=== PATIENT | male | born 1960 | race Caucasian/White ===

== ENCOUNTER 2021-10-17 10:17 | Inpatient (IN) | payer OTHER, SELFPAY ==
[2021-10-17] VITALS (14 sets, daily range): BP systolic 122–154; BP diastolic 67–106; PULSE 70–79; RESP 18–30; TEMP 36.7–39.8; O2SAT 85–96; BMI 29.0
--- NOTE | 2021-10-17 11:05 | EKG12_ITS ---
Test Reason : SOB Blood Pressure : / mmHG Vent. Rate : 067 BPM Atrial Rate : 067 BPM P-R Int : 136 ms QRS Dur : 116 ms QT Int : 394 ms P-R-T Axes : 001 -10 041 degrees QTc Int : 416 ms Normal sinus rhythm Low voltage QRS (limb leads) Incomplete Right Bundle Branch Block Confirmed by TERRANCE SYED, BRYAN ([id number]), acquisition editor AMELIE WORTHINGTON ([id number]) on 10/18/2021 1:58:07 PM Referred By: TIM/MARKELL Confirmed By:BRYAN CARLOS MD
--- NOTE | 2021-10-17 11:07 | EDS_ITS ---
HPI History of Present Illness Chief Complaint: Shortness of Breath Informant: patient Onset/Context/Timing Onset: Days Context: Gradual Onset Current Severity: Moderate Maximum Severity: Moderate Narrative Narrative: Patient presents via EMS secondary to increased shortness of breath with COVID. Patient reported has had symptoms for the past 10 days. He tested positive at [facility] 4 days ago. PFSH PFSH Medical History no medical history no medical history Allergy/AdvReac Type Severity Reaction Status Date / Time No Known Allergies Allergy Verified 10/17/21 13:15 Family History no significant family his Surgical History no surgical history Social History Smoking Status: Never smoker ROS ROS ED Constitutional Constitutional ED: Reports chills Eyes Eyes: Denies blurry vision or change in vision ENT ENT ED: Reports rhinorrhea Cardiovascular Cardiovascular: Denies chest pain or palpitations Respiratory/Chest Respiratory/Chest: Reports cough and dyspnea Gastrointestinal Gastrointestinal: Denies diarrhea, nausea or vomiting Genitourinary Genitourinary ED: Denies dysuria Musculoskeletal Musculoskeletal: Reports myalgias Integumentary Denies rash Neurologic Neurologic: Reports weakness Allergic/Immunologic Allergic/Immunologic ED: Denies urticaria EXAM Physical Exam Const Vital Signs: 10/17/21 10:19 10/17/21 10:42 10/17/21 13:16 Temperature 99.5 F H Temperature Source Oral Pulse Rate 70 71 Respiratory Rate 20 H Respiratory Effort Short of Breath Respiratory Pattern Tachypnea Blood Pressure 130/76 H 122/106 H Blood Pressure Mean 94 111 Pulse Ox 92 91 Oxygen Delivery Method Nasal Cannula Nasal Cannula Nasal Cannula Oxygen Flow Rate (L/min) 2 2 2 Positive well nourished and well developed General Appearance ED: well developed HEENT Reports moist mucous membranes Eyes PERRL and EOMs intact bilaterally Neck supple Chest Wall inspection of chest normal and palpation of chest normal Resp Resp Narrative: Mild crackles bilateral bases Cardio regular rate and regular rhythm GI non-tender Auscultation: hypoactive bowel sounds Palpation: soft Extremity normal to inspection Neuro oriented x3 Sensorium / Orientation: alert Skin no rashes or lesions noted MDM MDM MDM Narrative Medical decision making narrative: EKG, lab work, CTA of the chest obtained. Lab Data Attestation: I reviewed the patient's lab results. Labs: Laboratory Results - last 24 hr 0110/17/21 10/17/21 11:15 11:15 11:15 WBC 4.7 RBC 4.73 Hgb 14.3 Hct 41.6 MCV 87.9 MCH 30.2 MCHC 34.4 RDW Std Deviation 39.3 RDW Coeff of Kayce 12.1 Plt Count 159 MPV 10.8 Immature Gran % (Auto) 0.400 Neut % (Auto) 92.1 H Lymph % (Auto) 4.5 L [place] % (Auto) 3.0 Eos % (Auto) 0.0 Baso % (Auto) 0.0 Absolute Neuts (auto) 4.3 Absolute Lymphs (auto) 0.21 L Nucleated RBC % 0 Sodium 134 L Potassium 3.9 Chloride 102 Carbon Dioxide 25.0 Anion Gap 7 BUN 18 Creatinine 0.87 Estim Creat Clear Calc 11.71 Est GFR (MDRD) Af Amer 114 Est GFR (MDRD) Non-Af 94 BUN/Creatinine Ratio 20.7 H Glucose 132 H Lactic Acid 1.0 Calcium 8.4 L Total Bilirubin 0.60 AST 77 H ALT 67 H Alkaline Phosphatase 75 Total Protein 6.8 Albumin 2.6 L Globulin 4.2 Albumin/Globulin Ratio 0.6 L Radiography Diagnostic Testing: Clinical Impression(s) from Imaging Studies Chest CTA 10/17/21 12:10 IMPRESSION: Diffuse bilateral pulmonary infiltrates. Electronically Signed: Ang Fajardo MD at 12:45 EST , Service support , EKG Initial EKG: Attestation: I personally reviewed and interpreted this EKG as follows: Interpretation: Sinus Rhythm (Sinus at 67 with no acute ischemia.) Treatment and Re-Evaluation Comments:: On repeat evaluation patient resting comfortable on 3 L nasal cannula. His O2 sat is 92%. I turned his oxygen off and he dropped to 85% on room air. We did ambulate him on 2 L with O2 sats only in the upper 80s. After getting back to the bed he started coughing more and O2 sats stayed at 87% on 2 L. I did bump up to 3 L to get him over 90%. I do have concerns with patient going home. I will speak with hospitalist regarding admission. He will be given a dose of Decadron at this time. Discharge Plan Triage Chief Complaint: Shortness of Breath ED Provider: Juanita Sanchez Dx/Rx/DC Orders Clinical Impression: COVID-19, Hypoxia Primary Care Provider: Care Physician,No Primary Referrals: Care Physician,No Primary [Primary Care Provider] - Disposition Disposition: Acute Care [facility]
[2021-10-17 11:28] LABS: Absolute Lymphocyte Count 0.21 X10^3/uL (0.83-4.51); Absolute Neutrophil Count 4.3 X10^3/uL (2.0-7.7); Hematocrit 41.6 % (40-54); Hemoglobin 14.3 g/dL (13.0-16.5); Lymphocyte # 0.21 X10^3/ul (0.83-4.51); Lymphocyte % 4.5 % (19-41); Mean Corp Hgb Conc 34.4 g/dL (32-36); Mean Corpuscular Hgb 30.2 pg (27.0-32.0); Mean Corpuscular Volume 87.9 fL (80-94); Mean Platelet Vol. 10.8 fl (6.2-12.0); Monocyte# 0.14 X10^3/uL; NRBC Flagged by Analyzer 0 % (0-5); Neutrophil # 4.31 X10^3/uL (2.7-7.7); Neutrophil % 92.1 % (47-70); POSITIVE DIFFERENTIAL YES; Platelet Count 159 K/mm3 (150-450); RBC Distribution Width CV 12.1 % (11.6-14.6); RBC Distribution Width SD 39.3 fl (35.1-43.9); Red Blood Count 4.73 M/mm3 (4.6-6.2); White Blood Count 4.7 K/mm3 (4.4-11.0)
[2021-10-17 11:31] LABS: Differential Indicated SCAN CRITERIA MET
[2021-10-17 11:47] LABS: ALB/GLOB Ratio 0.6 RATIO (0.9-2.4); AST(SGOT) 77 U/L (15-37); Alanine Aminotransfer ALT/SGPT 67 U/L (16-61); Albumin, Serum 2.6 g/dL (3.2-5.0); Alkaline Phosphatase 75 U/L (45-117); Anion Gap 7 (5-15); BUN 18 mg/dL (7-18); BUN/Creat Ratio 20.7 RATIO (10-20); Calcium,Total 8.4 mg/dL (8.5-10.1); Chloride 102 mmol/L (98-107); Creatinine, Serum 0.87 mg/dL (0.70-1.30); EST Glomerular Filtration Rate 94 mL/min (>60); Est Glom Filt Rate - Afr Amer 114 mL/min (>60); Estimated Creatinine Clearance 11.71 ml/min; Globulin 4.2 g/dL (2.2-4.2); Glucose 132 mg/dL (74-106); Potassium 3.9 mmol/L (3.5-5.1); Protein, Total 6.8 g/dL (6.4-8.2); Sodium Level 134 mmol/L (136-145)
--- NOTE | 2021-10-17 12:10 | CT_ITS ---
STUDY: CTA CHEST REASON FOR EXAM: Male, 61 years old. covid pneumonia RADIATION DOSAGE (If Supplied By Facility): CTDIvol = ( 14.98 ) mGy, DLP = ( 437.18 ) mGycm TECHNIQUE: The examination was performed with the intravenous administration of IV 100mL Isovue-370. Post-processing of the angiographic images was performed, with multiplanar reformation and 3D reconstruction. Individualized dose optimization techniques were used for this CT. COMPARISON: None. FINDINGS: Normal enhancement of the main pulmonary artery and right and left pulmonary arteries. Normal enhancement of the bilateral peripheral pulmonary arteries. There is no demonstrated pulmonary embolism. Normal thoracic aorta and visualized great vessels. There is no demonstrated aortic dissection. Normal heart and pericardium. Normal mediastinum. Normal hilar regions. Normal visualized trachea and bronchi. The lungs are well expanded. Diffuse bilateral pulmonary infiltrates involving both upper and lower lobes. Radiographic follow-up is recommended. Normal pleura. Normal chest wall structures. There are degenerative changes of thoracic spine. Normal visualized upper abdomen. CT/CTA Chest W/WO Contrast IMPRESSION: Diffuse bilateral pulmonary infiltrates. Electronically Signed: Ang Fajardo MD at 12:45 EST , Service support ,
--- NOTE | 2021-10-17 14:35 | PCM.HP.STD ---
HPI - General General Date of Admission: 10/17/21 Date of Service: 10/17/21 Chief Complaint: COVID diagnosis, 10 days out, worsening. HPI Narrative The patient is a 61 y/o [employer] M w/ PMHx: Tobacco use; however, patient has not sought out any regular medical care who presents to the [facility] ED on 10/17/21 with history of onset COVID type symptoms including fever, chills, headache, sore throat, altered taste and smell, body aches, nausea with emesis, cough and dyspnea starting 10 days prior with unvaccinated status progressively worsening with evaluation at [facility] the prior where he tested positive; however, he has been worsening prompting family to bring him in. Work-up in the ED included T99.5, heart rate 70, BP 130/76, respiratory rate 24, 85% on room air with improvement to 91 to 92% on 2 L with failed walking ambulatory trial as patient had been potentially amenable to discharge to home, blood culture x2 pending per ED, CBC with WC 4.7, hemoglobin 14.3, platelet 159 with lymphopenia, CMP with sodium 134, glucose 132, lactic acid 1.0, AST/ALT 77/67, CTPA with no evidence of pulmonary emboli or dissection with bilateral COVID-pneumonia evident, EKG was sinus rhythm with no acute evidence of ischemia. In the ED patient was administered Decadron therapy. In the ED patient family is very adamant about certain treatments that they do want and do not want. They have requested patient not be administered baricitinib or remdesivir therapy. Attempted to discuss these items with them but regardless of discussions family preference is to avoid. [facility] Medical History Tobacco use Medical History no medical history Allergy/AdvReac Type Severity Reaction Status Date / Time No Known Allergies Allergy Verified 10/17/21 13:15 Family History (Updated 10/17/21 @ 17:[address] Milena Carmona MD) Mother Heart disease Father Heart disease Diabetes Family History no significant family his Surgical History (Updated 10/17/21 @ 17:[address] Milena Carmona MD) No history of previous surgery Surgical History no surgical history Social History (Updated 10/17/21 @ 17:[address] Milena Carmona MD) household members: spouse Smoking Status: Current every day smoker tobacco type: cigarettes Years smoked: 50 alcohol intake: never substance use type: does not use ROS ROS Narrative Admission Review of Systems: CONSTITUTIONAL: No weight loss, + fever, chills, weakness or fatigue. HEENT: + Headache, sore throat, altered taste/smell. Eyes: No visual loss, blurred vision, double vision or yellow sclerae. Ears, Nose, Throat: No hearing loss, sneezing. SKIN: No rash or itching, lesions, wounds. CARDIOVASCULAR: No chest pain, chest pressure or chest discomfort, palpitations, edema, orthopnea, syncopal events. RESPIRATORY: + shortness of breath, cough, No marked sputum, wheezing, hemoptysis. GASTROINTESTINAL: + anorexia, nausea with vomiting, No diarrhea, abdominal pain, melena, BRBPR. GENITOURINARY: No dysuria, frequency, urgency or retention. NEUROLOGICAL: + headache, No dizziness, syncope, paralysis, ataxia, numbness or tingling in the extremities, focal weakness, change in bowel or bladder control, seizure. MUSCULOSKELETAL: + muscle, back pain, joint pain or stiffness. HEMATOLOGIC: No anemia, bleeding or bruising. LYMPHATICS: No enlarged nodes. No history of splenectomy. PSYCHIATRIC: No history of depression or anxiety. ENDOCRINOLOGIC: No reports of sweating, cold or heat intolerance. No polyuria or polydipsia. ALLERGIES: No history of asthma, hives, eczema or rhinitis. Vital Signs Vital Signs Vital Signs: 10/17/21 10:19 10/17/21 10:42 10/17/21 13:16 Temperature 99.5 F H Temperature Source Oral Pulse Rate 70 71 Respiratory Rate 20 H Respiratory Effort Short of Breath Respiratory Pattern Tachypnea Blood Pressure 130/76 H 122/106 H Blood Pressure Mean 94 111 Pulse Ox 92 91 Oxygen Delivery Method Nasal Cannula Nasal Cannula Nasal Cannula Oxygen Flow Rate (L/min) 2 2 2 10/17/21 14:31 Temperature 98.9 F Temperature Source Temporal Pulse Rate 70 Respiratory Rate 24 H Respiratory Effort Respiratory Pattern Blood Pressure 142/91 H Blood Pressure Mean 108 Pulse Ox 85 Oxygen Delivery Method Room Air Oxygen Flow Rate (L/min) Weight Weight: 21 lb Body Mass Index (BMI) 2.9 Physical Exam Narrative Physical Examination: General: Awake, alert, oriented x 3 and cooperative, seated upright in the ED bed, fatigued and ill-appearing, increased stridor, accessory muscle usage, mildly lethargic. Skin: Normal color, normal turgor, no icterus, no cyanosis. HEENT: AT/NC, EOMI, PERRLA, moderately dry MM, no carotid bruits or JVD noted. Lungs: Diffusely diminished, greater bases, increased respiratory rate, accessory muscle usage, evidence of distress, no rales, ronchi or wheezing. Heart: Regular rate with regular rhythm; no gallop, rub audible. Abdomen: Soft, mild generalized discomfort with palpation, no obvious distention, mildly hyperactive bowel sounds, no obvious HSM. Extremities: No cyanosis, clubbing, or edema. Neurological: Patient awake, alert, oriented as noted, cognitive function mildly decreased from likely baseline, mildly lethargic pupils equally reactive to light and accommodation, cranial nerves II-XII grossly normal, moving all 4 extremities, no focal deficits, strength severely globally decreased secondary to acute presentation. Psychiatric: Affect appears flat, lethargic, fatigued, ill-appearing, evidence of respiratory distress, no acute evidence of depressive or anxiety feelings. Results Lab / Micro Data Result Diagrams: 10/17/21 11:15 10/17/21 11:15 Labs: Laboratory Results - last 24 hr 10/17/21 11:15: WBC 4.7, RBC 4.73, Hgb 14.3, Hct 41.6, MCV 87.9, MCH 30.2, MCHC 34.4, RDW Std Deviation 39.3, RDW Coeff of Kayce 12.1, Plt Count 159, MPV 10.8, Immature Gran % (Auto) 0.400, Neut % (Auto) 92.1 H, Lymph % (Auto) 4.5 L, [place] % (Auto) 3.0, Eos % (Auto) 0.0, Baso % (Auto) 0.0, Absolute Neuts (auto) 4.3, Absolute Lymphs (auto) 0.21 L, Nucleated RBC % 0 10/17/21 11:15: Sodium 134 L, Potassium 3.9, Chloride 102, Carbon Dioxide 25.0, Anion Gap 7, BUN 18, Creatinine 0.87, Estim Creat Clear Calc 11.71, Est GFR (MDRD) Af Amer 114, Est GFR (MDRD) Non-Af 94, BUN/Creatinine Ratio 20.7 H, Glucose 132 H, Calcium 8.4 L, Total Bilirubin 0.60, AST 77 H, ALT 67 H, Alkaline Phosphatase 75, Total Protein 6.8, Albumin 2.6 L, Globulin 4.2, Albumin/Globulin Ratio 0.6 L 10/17/21 11:15: Lactic Acid 1.0 Radiology Impression Chest CTA 10/17/21 12:10 IMPRESSION: Diffuse bilateral pulmonary infiltrates. Electronically Signed: Ang Fajardo MD at 12:45 EST , Service support , Assessment & Plan Assessment/Plan (1) Acute respiratory failure with hypoxia: (2) Pneumonia due to COVID-19 virus: PLAN: The patient is a 61 y/o [employer] M w/ PMHx: Tobacco use; however, patient has not sought out any regular medical care who presents to the [facility] ED on 10/17/21 with history of onset COVID type symptoms including fever, chills, headache, sore throat, altered taste and smell, body aches, nausea with emesis, cough and dyspnea starting 10 days prior with unvaccinated status progressively worsening with evaluation at [facility] the prior where he tested positive. #1. Acute Hypoxia secondary to Acute Bilateral Pneumonia secondary to Acute Viral Syndrome, COVID-19: Will admit to the MT telemetry, maintain on COVID precautions with need for an additional 10 days of further quarantine given severity of presentation, will maintain on oxygen with wean as tolerated to room air, PRN albuterol, HOB, IS parameters w/ pending sputum cultures and urine antigens, will obtain D-dimer, procalcitonin, CRP, CPK, Ferritin, LDH and BNP, continue supportive care including q 2 hour turning including prone given no prone bed availability and judicious hydration, closely monitor for worsening status for ARDS and multiorgan failure, will initiate and continue IV decadron x 10 doses, given family strong preference will defer any administration of remdesivir or barcitinib. #2. Hyperglycemia, mild: Glucose 132, possibly stress response, to be cautious given no significant medical care history will obtain A1c especially given planned steroid usage. #3. Elevated LFTs: Admission AST/ALT 77/67, likely secondary to acute presentation #1, continue to treat, will continue to trend #4. Tobacco Abuse: Encouraged cessation, inpatient consultation per RT, NR if desired. #5. DVT prophylaxis: SCDs, Lovenox. #6. CODE status: Patient does not have healthcare power of erisa attorney nor living will in place. Given presentation with respiratory failure with COVID-pneumonia in an unvaccinated status, discussed CODE status at length including difference between FULL code, DNR-CCA and DNR-CC status. Following discussions about the differences in these status, requested DNR-CCA, no intubation. Also requested (per family) complete avoidance of remdesivir and barcitinib. Advanced Care Planning Face to Face Time: 16 minutes. Charges/Coding Visit Charges Inpatient E&M: 11020 Init Hosp L3 Procedures Hospitalists Procedures: 54271 Advncd Care Plan 30 Min
--- NOTE | 2021-10-17 14:55 | CASEMGMT ---
QUIN CM to room to meet with patient for initial transition planning/care coordination assessment. QUIN FLORES introduced self and role at [facility]. Patient voices understanding and consents to assessment at this time. Patient's , Maggy Beavers present at bedside. Patient is alert and oriented and answers all questions appropriately. Care providers, pharmacy, and demographics verified/updated at this time. PCP: Denies Specialists: Denies Preferred Pharmacy: [facility]- [address] Insurance: None/Self pay Prescription Benefit: No Living Will/HPOA: Patient denies having living will or HPOA. LNOK: , Maggy Beavers Living Arrangements: Patient lives with , son and sister in one story house with no steps to enter the home. Patient states independent with ADLs prior to hospitalization. 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 Patient denies previous HHC or SNF stays. Patient does not wear home oxygen. Patient and deny preference of DME company if home oxygen were needed at time of discharge. Patient first tested positive for COVID 4 days ago at [facility]. Patient has had COVID-like symptoms x 10 days. Patient has no concerns with going home at time of discharge. CM to follow for any discharge planning/needs. Patient voices no concerns/needs at this time. Advised patient to ask for CM if any questions/concerns/needs arise. Voices understanding. Plan: home
--- NOTE | 2021-10-17 15:30 | ED.RN ---
PT HAS HAD NUMEROUS PHONE CALLS ASKING FOR UPDATES FROM FAMILY MEMBERS. AT BEDSIDE EDUCATED THAT THEY NEED TO DESIGNATED ONE PERSON THEIR CONTACT AND THAT PERSON CAN CALL AND UPDATE OTHERS. FAMILY ASLO UPSET THAT PATIENT CAN NOT HAVE VISITORS AND EXPRESSED WANTING TO GO HOME INSTEAD OF BEING ADMITTED. PT AND FAMILY UPDATED ON THE RISKS, THEY ASK FOR SOME TIME TO THINK ABOUT IT.
--- NOTE | 2021-10-17 16:20 | ED.RN ---
FAMILY COMES OUT SAYING THEY AGREE TO BE ADMITTED NOW. THIS RN GIVES THE PAPER WITH PATIENTS ROOM NUMBER, NURSES STATION NUMBER AND VISITOR RULES.
[2021-10-17] MEDS: dexAMETHasone 10 MG/ML Vial 6 MG IV (16:26)
[2021-10-17 16:31] LABS: BNP,B-Type NATRIURETIC PEPTIDE 21.5 pg/mL (0-100)
[2021-10-17 17:06] LABS: Ferritin 1955 ng/mL (26-388); LDH 489 U/L (87-241)
--- NOTE | 2021-10-17 17:09 | NURSING ---
Pandemic Documentation Initiated Emergency Documentation Start: 10/17/21 16:35 Freq: ONCE Status: Active Protocol: Created 10/17/21 17:09 (Rec: 10/17/21 17:09 [id number])
[2021-10-17] MEDS: Acetaminophen 325 MG Tablet 650 MG PO ×2 (17:33→21:43)
[2021-10-17] MEDS: 0.9% Saline Lock 10 ML Syringe IV ×2 (17:36→21:37)
[2021-10-17] MEDS: 0.9% Normal Saline 1,000 ML 100 ML IV (17:36)
[2021-10-17 18:35] LABS: D-Dimer Quantitative (DVT/PE) 2.28 FEU/ug/m (0.27-0.49)
[2021-10-17 18:53] LABS: Procalcitonin 0.14 ng/mL (0.00-0.09)
[2021-10-17] MEDS: Enoxaparin 30 MG/0.3 ML Syringe SC (21:37)
[2021-10-18] VITALS (22 sets, daily range): BP systolic 118–143; BP diastolic 66–75; PULSE 62–71; RESP 22–36; TEMP 37.1–38.5; O2SAT 92–97
[2021-10-18] MEDS: Acetaminophen 325 MG Tablet 650 MG PO ×3 (04:17→21:36)
[2021-10-18] MEDS: 0.9% Saline Lock 10 ML Syringe IV ×2 (04:24→21:38)
[2021-10-18 06:19] LABS: Absolute Lymphocyte Count 0.47 X10^3/uL (0.83-4.51); Absolute Neutrophil Count 3.5 X10^3/uL (2.0-7.7); Basophil# 0.01 X10^3/uL; Basophil% 0.2 % (0-1); Hematocrit 39.4 % (40-54); Hemoglobin 13.4 g/dL (13.0-16.5); Lymphocyte # 0.47 X10^3/ul (0.83-4.51); Lymphocyte % 11.3 % (19-41); Mean Corpuscular Hgb 29.6 pg (27.0-32.0); Mean Corpuscular Volume 87.2 fL (80-94); Mean Platelet Vol. 10.4 fl (6.2-12.0); Monocyte# 0.15 X10^3/uL; Monocyte% 3.6 % (0-10); NRBC Flagged by Analyzer 0 % (0-5); Neutrophil # 3.49 X10^3/uL (2.7-7.7); Neutrophil % 84.2 % (47-70); POSITIVE DIFFERENTIAL YES; POSITIVE MORPHOLOGY YES; Platelet Count 187 K/mm3 (150-450); RBC Distribution Width CV 12.3 % (11.6-14.6); RBC Distribution Width SD 39.4 fl (35.1-43.9); Red Blood Count 4.52 M/mm3 (4.6-6.2); White Blood Count 4.2 K/mm3 (4.4-11.0)
[2021-10-18 06:27] LABS: Differential Indicated SCAN CRITERIA MET
[2021-10-18 06:55] LABS: ALB/GLOB Ratio 0.6 RATIO (0.9-2.4); AST(SGOT) 90 U/L (15-37); Alanine Aminotransfer ALT/SGPT 67 U/L (16-61); Albumin, Serum 2.3 g/dL (3.2-5.0); Alkaline Phosphatase 67 U/L (45-117); Anion Gap 6 (5-15); BUN 19 mg/dL (7-18); BUN/Creat Ratio 24.6 RATIO (10-20); Calcium,Total 8.3 mg/dL (8.5-10.1); Chloride 101 mmol/L (98-107); Creatinine, Serum 0.77 mg/dL (0.70-1.30); EST Glomerular Filtration Rate 108 mL/min (>60); Est Glom Filt Rate - Afr Amer 131 mL/min (>60); Estimated Creatinine Clearance 101.39 ml/min; Globulin 4.1 g/dL (2.2-4.2); Glucose 105 mg/dL (74-106); Potassium 4.1 mmol/L (3.5-5.1); Protein, Total 6.4 g/dL (6.4-8.2); Sodium Level 132 mmol/L (136-145)
[2021-10-18 08:16] LABS: Hemoglobin A1c 5.8 % (3.8-5.6)
[2021-10-18] MEDS: dexAMETHasone 10 MG/ML Vial 6 MG IV (09:35)
[2021-10-18] MEDS: Enoxaparin 30 MG/0.3 ML Syringe SC ×2 (09:36→21:39)
--- NOTE | 2021-10-18 12:11 | PN.HOSP_ITS ---
Subjective Subjective Patient seen and examined. Was admitted with a complaint of shortness of breath and is being managed for acute hypoxic respiratory failure due to COVID-19 pneumonia. Patient complains of feeling weak and tired today. He is on 8 L of oxygen. He is coughing cough is largely nonproductive. He is noted to be febrile today and tachypneic. He denies any nausea or vomiting. Review of systems otherwise negative. Objective Data Objective Data Vital Signs: Vital Signs Temp Pulse Resp BP Pulse Ox 101.3 F H 68 28 H 131/66 H 94 10/18/21 09:24 10/18/21 09:24 10/18/21 09:24 10/18/21 09:24 10/18/21 09:24 Oxygen Flow Rate (L/min) 8 Oxygen Delivery Method High Flow Weight: 208 lb 5.389 oz Body Mass Index (BMI) 29.0 Intake & Output: Intake and Output for Last 24 Hours 10/16/21 10/17/21 10/18/21 23:59 23:59 23:59 Intake Total 1000 / 1000 Output Total 400 / 400 Balance 600 / 600 Medical Nutrition Assessment Dietitian: Malnutrition Criteria Met Start: 10/18/21 11:13 Freq: Status: Active Protocol: Document 10/18/21 11:13 RMA (Rec: 10/18/21 11:13 RMA [id number]) Nutrition Malnutrition Evidence of Malnutrition Exists Yes Malnutrition (severe): Acute Illness/Injury Evidenced By Suboptimal Energy Intake ( Severe),Weight Loss (Severe) Clinical Problem Acute Disease or Injury Related Malnutrition Etiology Severe protein-calorie malnutrition in the context of acute illness related to poor appetite and inadequate oral intake Signs/Symptoms as evidenced by ~2% wt loss x past 1 week and PO meeting less than 50% estimated nutrition needs x past 1 week Status Active Problem Recommendation Dietitian Recommendations/Changes Continue regular diet for now. Will add vanilla ensure compact BID w/ lunch and dinner for tolerance. HgbA1C noted 5.8% slightly elevated---monitor need to restrict carbohydrates as oral intake improves w/ meals. Lab / Micro Data Result Diagrams: 10/18/21 05:45 10/18/21 05:45 Labs: Laboratory Results - last 24 hr 10/17/21 11:15: Ferritin 1955 H, Lactate Dehydrogenase 489 H, C-React Prot Ext Range 165.00 H 10/17/21 11:15: B-Natriuretic Peptide 21.5 10/17/21 17:50: D-Dimer Quant (PE/DVT) 2.28 H* 10/17/21 17:50: Procalcitonin 0.14 H 10/18/21 05:45: WBC 4.2 L, RBC 4.52 L, Hgb 13.4, Hct 39.4 L, MCV 87.2, MCH 29.6, MCHC 34.0, RDW Std Deviation 39.4, RDW Coeff of Kayce 12.3, Plt Count 187, MPV 10.4, Immature Gran % (Auto) 0.700, Neut % (Auto) 84.2 H, Lymph % (Auto) 11.3 L, [place] % (Auto) 3.6, Eos % (Auto) 0.0, Baso % (Auto) 0.2, Absolute Neuts (auto) 3.5, Absolute Lymphs (auto) 0.47 L, Nucleated RBC % 0, Diff Path Review February10/18/21 05:45: Sodium 132 L, Potassium 4.1, Chloride 101, Carbon Dioxide 25.0, Anion Gap 6, BUN 19 H, Creatinine 0.77, Estim Creat Clear Calc 101.39, Est GFR (MDRD) Af Amer 131, Est GFR (MDRD) Non-Af 108, BUN/Creatinine Ratio 24.6 H, Glucose 105, Calcium 8.3 L, Total Bilirubin 0.70, AST 90 H, ALT 67 H, Alkaline Phosphatase 67, Total Protein 6.4, Albumin 2.3 L, Globulin 4.1, Albumin/Globulin Ratio 0.6 L 10/18/21 05:45: Hemoglobin A1c 5.8 H Micro: Microbiology 10/17/21 17:24 Urine, Clean Catch Legionella Antigen - Final 10/17/21 17:24 Urine, Clean Catch Streptococcus pneumoniae Antigen (M - Final Radiography Diagnostic Testing: Radiology Impression Chest CTA 10/17/21 12:10 IMPRESSION: Diffuse bilateral pulmonary infiltrates. Electronically Signed: Ang Fajardo MD at 12:45 EST , Service support , Physical Exam Const alert and oriented x3 Orientation / Consciousness: lethargic Exam Limitations: no limitations HEENT head/scalp atraumatic Head and Scalp: normocephalic Mouth: dry mucous membranes Eyes PERRL, EOMs intact bilaterally and conjunctivae normal Neck no lymphadenopathy Resp Resp Narrative: Diminished breath sounds bibasilar. Few crackles. No wheezes or crackles. On 8 L of oxygen by nasal cannula. Tachypneic Cardio regular rate, regular rhythm, S1 normal heart sound, S2 normal heart sound and no murmurs GI normal to inspection, nondistended, normoactive bowel sounds, soft to palpation, non-tender and non-distended Extremity normal to inspection, full ROM and no clubbing, cyanosis or edema Peripheral Pulses: Yes pulses 2+ throughout Skin no rashes or lesions noted Neuro oriented x3 and CN's II-XII intact bilaterally Sensorium / Orientation: awake and alert Psych affect normal Assessment & Plan Assessment/Plan (1) Acute respiratory failure with hypoxia: (2) Pneumonia due to COVID-19 virus: PLAN: #Acute hypoxic respiratory failure due to covid 19 pneumonia * On Decadron 6 mg daily. On 8 L of oxygen. * Patient and family do not want baricitinib or remdesivir. * Titrate oxygen to maintain saturation above 90%. Breathing treatments are bronchodilators. * #Nicotine dependence: Counseled to quit. #Transaminitis: AST is up to 90 and ALT 67. Bilirubin is normal. Likely due to acute COVID infection. Will monitor. #Elevated D-dimer: D-dimer was 2.28. CT was negative for PE. Likely due to COVID. On Lovenox DVT prophylaxis: Lovenox 30 mg twice daily CODE STATUS: Full code * Patient was listed as DNR CCA no intubation on admission. I clarified CODE STATUS with patient today and explained to him that if he needed a ventilator and did not wanted as his current CODE STATUS suggested, he could without it. Patient said he would want a ventilator if he absolutely needed and was not also agreeable to CPR after counseling. We will therefore change CODE STATUS to full code. * Total [id number] time 16 minutes. Charges/Coding Visit Charges Inpatient E&M: 90324 Subs Hosp L3 Procedures Hospitalists Procedures: 67395 Advncd Care Plan 30 Min
[2021-10-18] MEDS: Albuterol Sulfate 8 gm Inhaler (60 puffs) INHALATION (22:02)
[2021-10-19] VITALS (16 sets, daily range): BP systolic 116–122; BP diastolic 72–77; PULSE 54–87; RESP 16–30; TEMP 36.1–36.9; O2SAT 87–97
[2021-10-19 06:26] LABS: Absolute Lymphocyte Count 0.47 X10^3/uL (0.83-4.51); Absolute Neutrophil Count 4.4 X10^3/uL (2.0-7.7); Hematocrit 40.5 % (40-54); Hemoglobin 13.9 g/dL (13.0-16.5); Lymphocyte # 0.47 X10^3/ul (0.83-4.51); Lymphocyte % 8.9 % (19-41); Mean Corp Hgb Conc 34.3 g/dL (32-36); Mean Corpuscular Hgb 29.8 pg (27.0-32.0); Mean Corpuscular Volume 86.9 fL (80-94); Mean Platelet Vol. 10.6 fl (6.2-12.0); Monocyte# 0.37 X10^3/uL; NRBC Flagged by Analyzer 0 % (0-5); Neutrophil # 4.44 X10^3/uL (2.7-7.7); Neutrophil % 83.5 % (47-70); POSITIVE DIFFERENTIAL YES; Platelet Count 234 K/mm3 (150-450); RBC Distribution Width CV 12.2 % (11.6-14.6); RBC Distribution Width SD 39.1 fl (35.1-43.9); Red Blood Count 4.66 M/mm3 (4.6-6.2); White Blood Count 5.3 K/mm3 (4.4-11.0)
[2021-10-19 06:46] LABS: Anion Gap 8 (5-15); BUN 21 mg/dL (7-18); BUN/Creat Ratio 30.1 RATIO (10-20); Calcium,Total 8.6 mg/dL (8.5-10.1); Chloride 101 mmol/L (98-107); EST Glomerular Filtration Rate 121 mL/min (>60); Est Glom Filt Rate - Afr Amer 147 mL/min (>60); Estimated Creatinine Clearance 115.04 ml/min; Glucose 131 mg/dL (74-106); Potassium 4.1 mmol/L (3.5-5.1); Sodium Level 134 mmol/L (136-145)
[2021-10-19 06:48] LABS: Differential Indicated SCAN CRITERIA MET
--- NOTE | 2021-10-19 08:01 | NURSING ---
pt Maggy called for update on pt status. provided update and answered questions. reports that she has to call from a neighbor's phone, . she asks that we call this phone number and leave messages for updates, and use the cell phone number as listed in demographics for emergency contact.
[2021-10-19] MEDS: Enoxaparin 30 MG/0.3 ML Syringe SC ×2 (08:35→22:14)
[2021-10-19] MEDS: guaiFENesin 10 ML UDC (200MG/10ML) 20 ML PO ×3 (08:35→22:13)
[2021-10-19] MEDS: dexAMETHasone 10 MG/ML Vial 6 MG IV (08:35)
[2021-10-19] MEDS: 0.9% Saline Lock 10 ML Syringe IV (08:36)
[2021-10-19 10:03] LABS: Pathologist Review Reviewed
--- NOTE | 2021-10-19 11:49 | PN.HOSP_ITS ---
Subjective Subjective Patient seen and examined. He is now on AirVo. He says he feels his breathing is getting better. He is now on AirVo. He is tachypneic. Objective Data Objective Data Vital Signs: Vital Signs Temp Pulse Resp BP Pulse Ox 97.8 F 60 28 H 122/75 H 94 10/19/21 10:11 10/19/21 10:11 10/19/21 10:11 10/19/21 10:11 10/19/21 10:11 Oxygen Flow Rate (L/min) 55 Oxygen Delivery Method Airvo Weight: 207 lb 0.225 oz Body Mass Index (BMI) 29.0 Intake & Output: Intake and Output for Last 24 Hours 10/17/21 10/18/21 10/19/21 23:59 23:59 23:59 Intake Total 1000 / 1800 1600 / 1600 Output Total 400 / 725 1625 / 1625 Balance 600 / 1075 -25 / -25 Medical Nutrition Assessment Dietitian: Malnutrition Criteria Met Start: 10/18/21 11:13 Freq: Status: Active Protocol: Document 10/18/21 11:13 RMA (Rec: 10/18/21 11:13 RMA [id number]) Nutrition Malnutrition Evidence of Malnutrition Exists Yes Malnutrition (severe): Acute Illness/Injury Evidenced By Suboptimal Energy Intake ( Severe),Weight Loss (Severe) Clinical Problem Acute Disease or Injury Related Malnutrition Etiology Severe protein-calorie malnutrition in the context of acute illness related to poor appetite and inadequate oral intake Signs/Symptoms as evidenced by ~2% wt loss x past 1 week and PO meeting less than 50% estimated nutrition needs x past 1 week Status Active Problem Recommendation Dietitian Recommendations/Changes Continue regular diet for now. Will add vanilla ensure compact BID w/ lunch and dinner for tolerance. HgbA1C noted 5.8% slightly elevated---monitor need to restrict carbohydrates as oral intake improves w/ meals. Lab / Micro Data Result Diagrams: 10/19/21 06:06 10/19/21 06:00 Labs: Laboratory Results - last 24 hr 10/18/21 05:45: Diff Path Review Reviewed 10/19/21 06:00: Sodium 134 L, Potassium 4.1, Chloride 101, Carbon Dioxide 25.0, Anion Gap 8, BUN 21 H, Creatinine 0.70, Estim Creat Clear Calc 115.04, Est GFR (MDRD) Af Amer 147, Est GFR (MDRD) Non-Af 121, BUN/Creatinine Ratio 30.1 H, Glucose 131 H, Calcium 8.6 10/19/21 06:06: WBC 5.3, RBC 4.66, Hgb 13.9, Hct 40.5, MCV 86.9, MCH 29.8, MCHC 34.3, RDW Std Deviation 39.1, RDW Coeff of Kayce 12.2, Plt Count 234, MPV 10.6, Immature Gran % (Auto) 0.600, Neut % (Auto) 83.5 H, Lymph % (Auto) 8.9 L, [place] % (Auto) 7.0, Eos % (Auto) 0.0, Baso % (Auto) 0.0, Absolute Neuts (auto) 4.4, Absolute Lymphs (auto) 0.47 L, Nucleated RBC % 0 Micro: Microbiology 10/17/21 11:45 Blood Culture (Wb) - Left Hand Blood Culture - Preliminary No growth in 48 hours. 10/17/21 11:15 Blood Culture (Wb) - Left Forearm Blood Culture - Preliminary No growth in 48 hours. 10/17/21 17:24 Urine, Clean Catch Legionella Antigen - Final 10/17/21 17:24 Urine, Clean Catch Streptococcus pneumoniae Antigen (M - Final Physical Exam Const alert, oriented x3 and no apparent distress Exam Limitations: no limitations HEENT head/scalp atraumatic Head and Scalp: normocephalic Eyes PERRL, EOMs intact bilaterally and conjunctivae normal Neck no lymphadenopathy Resp Resp Narrative: Diminished breath sounds bibasilar. Few crackles. No wheezes or crackles. On AirVo L of oxygen by nasal cannula. Tachypneic Cardio regular rate, regular rhythm, S1 normal heart sound, S2 normal heart sound and no murmurs GI normal to inspection, nondistended, normoactive bowel sounds, soft to palpation, non-tender and non-distended Extremity normal to inspection, full ROM and no clubbing, cyanosis or edema Peripheral Pulses: Yes pulses 2+ throughout Skin no rashes or lesions noted Neuro oriented x3 and CN's II-XII intact bilaterally Sensorium / Orientation: awake and alert Psych affect normal Assessment & Plan Assessment/Plan (1) Acute respiratory failure with hypoxia: (2) Pneumonia due to COVID-19 virus: PLAN: #Acute hypoxic respiratory failure due to covid 19 pneumonia * On Decadron 6 mg daily. Now on AirVo * Patient and family do not want baricitinib or remdesivir. * Titrate oxygen to maintain saturation above 90%. Breathing treatments with bronchodilators. * consult pulmonology as he is now on AirVo * #Nicotine dependence: Counseled to quit. #Transaminitis: Likely due to acute COVID infection. Improving. Will monitor. #Elevated D-dimer: D-dimer was 2.28. CT was negative for PE. Likely due to COVID. On Lovenox DVT prophylaxis: Lovenox 30 mg twice daily CODE STATUS: Full code * Charges/Coding Visit Charges Inpatient E&M: 86591 Subs Hosp L3
--- NOTE | 2021-10-19 15:55 | NURSING ---
Pt resting in bed on his right side. patient remains 95% on Airvo. patient does appear SOB especially with talking. patient did agree to try to get up into the chair for dinner. plan to get patient up into chair after patient rests for a bit. patient denies further needs at this time.
--- NOTE | 2021-10-19 17:07 | NURSING ---
Assisted patient to sit up at the edge of the bed for dinner. patient tachypneic. patient calmed down once up at the edge of the bed for a few minutes. pulse ox had dropped slightly to 88% but came back up to 92%. patient states he would like to stay sitting at the edge of the bed for dinner rather than up to the chair at this time. states may try getting to the chair later this pm. pt very appreciative and states it feels good to sit up. will monitor.
--- NOTE | 2021-10-19 18:00 | NURSING ---
Pt wants to remain sitting at edge of bed. patient states I feel so much better right now. patient is currently 100% on Airvo. still some some coughing spells. denies further needs at this time.
[2021-10-20] VITALS (18 sets, daily range): BP systolic 105–115; BP diastolic 66–82; PULSE 50–77; RESP 18–38; TEMP 36.6–37.3; O2SAT 88–97
[2021-10-20] MEDS: guaiFENesin 10 ML UDC (200MG/10ML) 20 ML PO (05:02)
[2021-10-20 06:46] LABS: Absolute Lymphocyte Count 0.46 X10^3/uL (0.83-4.51); Absolute Neutrophil Count 7.3 X10^3/uL (2.0-7.7); Basophil# 0.01 X10^3/uL; Basophil% 0.1 % (0-1); Hematocrit 38.6 % (40-54); Hemoglobin 13.2 g/dL (13.0-16.5); Lymphocyte # 0.46 X10^3/ul (0.83-4.51); Lymphocyte % 5.6 % (19-41); Mean Corp Hgb Conc 34.2 g/dL (32-36); Mean Corpuscular Hgb 29.8 pg (27.0-32.0); Mean Corpuscular Volume 87.1 fL (80-94); Mean Platelet Vol. 10.5 fl (6.2-12.0); NRBC Flagged by Analyzer 0 % (0-5); Neutrophil # 7.25 X10^3/uL (2.7-7.7); Neutrophil % 87.7 % (47-70); POSITIVE DIFFERENTIAL YES; Platelet Count 265 K/mm3 (150-450); RBC Distribution Width SD 38.7 fl (35.1-43.9); Red Blood Count 4.43 M/mm3 (4.6-6.2); White Blood Count 8.3 K/mm3 (4.4-11.0)
[2021-10-20 06:48] LABS: Differential Indicated SCAN CRITERIA MET
[2021-10-20 07:05] LABS: Differential Comment SCANNED
[2021-10-20 07:16] LABS: Anion Gap 8 (5-15); BUN 24 mg/dL (7-18); BUN/Creat Ratio 34.7 RATIO (10-20); Calcium,Total 8.6 mg/dL (8.5-10.1); Chloride 103 mmol/L (98-107); Creatinine, Serum 0.69 mg/dL (0.70-1.30); EST Glomerular Filtration Rate 122 mL/min (>60); Est Glom Filt Rate - Afr Amer 148 mL/min (>60); Estimated Creatinine Clearance 116.71 ml/min; Glucose 122 mg/dL (74-106); Potassium 3.9 mmol/L (3.5-5.1); Sodium Level 136 mmol/L (136-145)
[2021-10-20] MEDS: dexAMETHasone 10 MG/ML Vial 6 MG IV (09:47)
[2021-10-20] MEDS: Enoxaparin 30 MG/0.3 ML Syringe SC ×2 (09:47→21:34)
[2021-10-20] MEDS: 0.9% Saline Lock 10 ML Syringe IV ×2 (09:50→21:34)
--- NOTE | 2021-10-20 12:48 | CON.PCM.CC_ITS ---
Assessment & Plan Assessment/Plan (1) Pneumonia due to COVID-19 virus: PLAN: RECOMMENDATIONS: 1. Wean FiO2 for saturations greater than 90%. 2. Utilize diuretics as needed to maintain euvolemic state. Will defer to hospitalist. 3. Continue Decadron to complete 10 days of therapy. 4. Continue prophylactic Lovenox. 5. Awake prone positioning was encouraged. 6. There is no additional medical therapy that can be offered to the patient, short of BIPAP and/or intubation. 7. If the patient were to worsen from an oxygenation perspective, we can be contacted to reevaluate the patient. Will sign off at this time. IMPRESSIONS: 1. Acute hypoxemic respiratory failure secondary to COVID-19 pneumonia The patient presented to the hospital with worsening COVID-19 after having been diagnosed on October 13. He subsequently refused remdesivir and baricitinib. CTA was negative for PE. Therefore, the patient was initiated on prophylactic Lovenox and Decadron. Despite the aforementioned, the patient's oxygenation status has slowly worsened over the course of his hospitalization. Aside from utilizing diuretic therapy as needed, there is no additional medical therapy that can be offered to the patient. If the patient's oxygenation status were to worsen and he ultimately ends up on BiPAP with ever escalating FiO2 demands, we can be contacted to reevaluate the patient. This note was generated with [employer] dictation software. It may contain incorrect words, spelling, and punctuation that were not noted in checking the note before signing. HPI Consult Data Date of Consult: 10/20/21 HPI Narrative Reason for Consultation: Acute hypoxemic respiratory failure secondary to COVID- 19 pneumonia HPI Narrative: The patient is a 61-year-old male, with a history as outlined below, who presented to the emergency department via EMS on October 17 with worsening dyspnea after having been diagnosed with COVID-19 on October 13. The patient is unvaccinated. On presentation to the emergency department, the patient was noted to have a low-grade fever and was initially maintaining appropriate saturations on 2 L/min. Laboratory evaluation was largely unrevealing. D-dimer was noted to be 2.28. CTA chest showed no evidence for pulmonary embolism but did demonstrate diffuse bilateral infiltrates. The patient was started on Decadron and prophylactic Lovenox. He was admitted to the medical surgical floor for further management. To date, the patient has had worsening oxygenation status. In addition, he refused baricitinib and remdesivir. The patient is currently on Airvo heated high flow with an FiO2 of 80% and flow rate of 55 L/min. He is documented to be overall net -1 L for the hospitalization. [facility] Medical History Tobacco use Medical History no medical history Allergy/AdvReac Type Severity Reaction Status Date / Time No Known Allergies Allergy Verified 10/17/21 13:15 Family History (Updated 10/17/21 @ 17:[address] Milena Carmona MD) Mother Heart disease Father Heart disease Diabetes Family History no significant family his Surgical History (Updated 10/17/21 @ 17:[address] Milena Carmona MD) No history of previous surgery Surgical History no surgical history Social History (Updated 10/17/21 @ 17:[address] Milena Carmona MD) household members: spouse Smoking Status: Current every day smoker tobacco type: cigarettes Years smoked: 50 alcohol intake: never substance use type: does not use ROS Constitutional Constitutional: Reports fatigue, malaise and weakness Eyes Eyes: Denies blurry vision or change in vision ENT HEENT: Denies headache(s) or nasal congestion Cardiovascular Cardiovascular: Reports dyspnea; Denies chest pain Respiratory/Chest Respiratory/Chest: Reports cough and dyspnea Gastrointestinal Gastrointestinal: Denies abdominal pain, diarrhea, nausea or vomiting Genitourinary Genitourinary: Denies difficulty urinating Musculoskeletal Musculoskeletal: Denies back pain Integumentary Integumentary: Denies lesions, rash or skin ulcer Neurologic Neurologic: Denies abnormal gait or abnormal speech Psychiatric Psychiatric: Denies anxiety Endocrine Endocrinology: Reports fatigue Hematologic/Lymphatic Hematologic/Lymphatic: Denies easy bleeding or easy bruising Physical Exam Const alert and oriented x3 General Appearance: cooperative and ill appearing HEENT normocephalic and head/scalp atraumatic Eyes PERRL, EOMs intact bilaterally and conjunctivae normal Neck supple General: trachea midline Chest inspection of chest normal Resp Auscultation: diminished lung sounds; Negative for rales, rhonchi or wheezes Cardio regular rate and regular rhythm GI normal to inspection, nondistended, normoactive bowel sounds Extremity no clubbing, cyanosis or edema Skin no rashes or lesions noted Neuro CN's II-XII intact bilaterally, moves all extremities and no focal motor deficits Psych Mood & Affect: flat affect Medical Records Data Medical Nutrition Assessment Dietitian: Malnutrition Criteria Met Start: 10/18/21 11:13 Freq: Status: Active Protocol: Document 10/18/21 11:13 RMA (Rec: 10/18/21 11:13 RMA [id number]) Nutrition Malnutrition Evidence of Malnutrition Exists Yes Malnutrition (severe): Acute Illness/Injury Evidenced By Suboptimal Energy Intake ( Severe),Weight Loss (Severe) Clinical Problem Acute Disease or Injury Related Malnutrition Etiology Severe protein-calorie malnutrition in the context of acute illness related to poor appetite and inadequate oral intake Signs/Symptoms as evidenced by ~2% wt loss x past 1 week and PO meeting less than 50% estimated nutrition needs x past 1 week Status Active Problem Recommendation Dietitian Recommendations/Changes Continue regular diet for now. Will add vanilla ensure compact BID w/ lunch and dinner for tolerance. HgbA1C noted 5.8% slightly elevated---monitor need to restrict carbohydrates as oral intake improves w/ meals. Lab / Micro Data Result Diagrams: 10/20/21 06:12 10/20/21 06:12 Labs: Laboratory Results - last 24 hr 10/20/21 06:12: WBC 8.3, RBC 4.43 L, Hgb 13.2, Hct 38.6 L, MCV 87.1, MCH 29.8, MCHC 34.2, RDW Std Deviation 38.7, RDW Coeff of Kayce 12.0, Plt Count 265, MPV 10.5, Immature Gran % (Auto) 0.600, Neut % (Auto) 87.7 H, Lymph % (Auto) 5.6 L, [place] % (Auto) 6.0, Eos % (Auto) 0.0, Baso % (Auto) 0.1, Absolute Neuts (auto) 7.3, Absolute Lymphs (auto) 0.46 L, Nucleated RBC % 0, Differential Comment S CANNED 10/20/21 06:12: Sodium 136, Potassium 3.9, Chloride 103, Carbon Dioxide 25.0, Anion Gap 8, BUN 24 H, Creatinine 0.69 L, Estim Creat Clear Calc 116.71, Est GFR (MDRD) Af Amer 148, Est GFR (MDRD) Non-Af 122, BUN/Creatinine Ratio 34.7 H, Glucose 122 H, Calcium 8.6 Micro: Microbiology 10/18/21 10:52 Sputum, Expectorated/Coughed Gram Stain - Final 10/18/21 10:52 Sputum, Expectorated/Coughed Respiratory Culture - Preliminary Yeast Like Organism 10/17/21 11:45 Blood Culture (Wb) - Left Hand Blood Culture - Preliminary No growth in 48 hours. 10/17/21 11:15 Blood Culture (Wb) - Left Forearm Blood Culture - Preliminary No growth in 48 hours. Charges/Coding Visit Charges Inpatient E&M: 88107 Init Hosp L3
--- NOTE | 2021-10-20 14:56 | PN.HOSP_ITS ---
Subjective Subjective Patient seen and examined. He remains on air Vo. He had no active complaints. Review of systems otherwise negative. Objective Data Objective Data Vital Signs: Vital Signs Temp Pulse Resp BP Pulse Ox 99.0 F 58 L 18 111/66 93 10/20/21 14:16 10/20/21 14:16 10/20/21 14:20 10/20/21 14:16 10/20/21 14:16 Oxygen Flow Rate (L/min) 55 Oxygen Delivery Method Airvo Weight: 203 lb 0.732 oz Body Mass Index (BMI) 29.0 Intake & Output: Intake and Output for Last 24 Hours 10/18/21 10/19/21 10/20/21 23:59 23:59 23:59 Intake Total 1000 / 1800 2120 / 2120 Output Total 400 / 725 3375 / 3375 400 / 400 Balance 600 / 1075 -1255 / -1255 -400 / -400 Medical Nutrition Assessment Dietitian: Malnutrition Criteria Met Start: 10/18/21 11:13 Freq: Status: Active Protocol: Document 10/18/21 11:13 RMA (Rec: 10/18/21 11:13 RMA [id number]) Nutrition Malnutrition Evidence of Malnutrition Exists Yes Malnutrition (severe): Acute Illness/Injury Evidenced By Suboptimal Energy Intake ( Severe),Weight Loss (Severe) Clinical Problem Acute Disease or Injury Related Malnutrition Etiology Severe protein-calorie malnutrition in the context of acute illness related to poor appetite and inadequate oral intake Signs/Symptoms as evidenced by ~2% wt loss x past 1 week and PO meeting less than 50% estimated nutrition needs x past 1 week Status Active Problem Recommendation Dietitian Recommendations/Changes Continue regular diet for now. Will add vanilla ensure compact BID w/ lunch and dinner for tolerance. HgbA1C noted 5.8% slightly elevated---monitor need to restrict carbohydrates as oral intake improves w/ meals. Lab / Micro Data Result Diagrams: 10/20/21 06:12 10/20/21 06:12 Labs: Laboratory Results - last 24 hr 10/20/21 06:12: WBC 8.3, RBC 4.43 L, Hgb 13.2, Hct 38.6 L, MCV 87.1, MCH 29.8, MCHC 34.2, RDW Std Deviation 38.7, RDW Coeff of Kayce 12.0, Plt Count 265, MPV 10.5, Immature Gran % (Auto) 0.600, Neut % (Auto) 87.7 H, Lymph % (Auto) 5.6 L, [place] % (Auto) 6.0, Eos % (Auto) 0.0, Baso % (Auto) 0.1, Absolute Neuts (auto) 7.3, Absolute Lymphs (auto) 0.46 L, Nucleated RBC % 0, Differential Comment SCANNED 10/20/21 06:12: Sodium 136, Potassium 3.9, Chloride 103, Carbon Dioxide 25.0, Anion Gap 8, BUN 24 H, Creatinine 0.69 L, Estim Creat Clear Calc 116.71, Est GFR (MDRD) Af Amer 148, Est GFR (MDRD) Non-Af 122, BUN/Creatinine Ratio 34.7 H, Glucose 122 H, Calcium 8.6 Micro: Microbiology 10/18/21 10:52 Sputum, Expectorated/Coughed Gram Stain - Final 10/18/21 10:52 Sputum, Expectorated/Coughed Respiratory Culture - Preliminary Yeast Like Organism 10/17/21 11:45 Blood Culture (Wb) - Left Hand Blood Culture - Preliminary No growth in 48 hours. 10/17/21 11:15 Blood Culture (Wb) - Left Forearm Blood Culture - Preliminary No growth in 48 hours. 10/17/21 17:24 Urine, Clean Catch Legionella Antigen - Final 10/17/21 17:24 Urine, Clean Catch Streptococcus pneumoniae Antigen (M - F inal Physical Exam Const alert, oriented x3 and no apparent distress Exam Limitations: no limitations HEENT head/scalp atraumatic and moist oral mucous membranes Head and Scalp: normocephalic Eyes PERRL, EOMs intact bilaterally and conjunctivae normal Neck no lymphadenopathy Resp Resp Narrative: Diminished breath sounds bibasilar. Few crackles. No wheezes or crackles. On AirVo by nasal cannula. T Cardio regular rate, regular rhythm, S1 normal heart sound, S2 normal heart sound and no murmurs GI normal to inspection, nondistended, normoactive bowel sounds, soft to palpation, non-tender and non-distended Extremity normal to inspection, full ROM and no clubbing, cyanosis or edema Peripheral Pulses: Yes pulses 2+ throughout Skin no rashes or lesions noted Neuro oriented x3, CN's II-XII intact bilaterally and moves all extremities Sensorium / Orientation: awake and alert Psych affect normal Assessment & Plan Assessment/Plan (1) Acute respiratory failure with hypoxia: (2) Pneumonia due to COVID-19 virus: PLAN: #Acute hypoxic respiratory failure due to covid 19 pneumonia * On Decadron 6 mg daily. Remains on AirVo * Patient and family do not want baricitinib or remdesivir. * Titrate oxygen to maintain saturation above 90%. Breathing treatments with bronchodilators. * consult pulmonology as he is now on AirVo * #Nicotine dependence: Counseled to quit. #Transaminitis: Likely due to acute COVID infection. Improving. Will monitor. #Elevated D-dimer: D-dimer was 2.28. CT was negative for PE. Likely due to COVID. On Lovenox DVT prophylaxis: Lovenox 30 mg twice daily CODE STATUS: Full code * Charges/Coding Visit Charges Inpatient E&M: 66122 Subs Hosp L2
[2021-10-20] MEDS: Ipratropium/Albuterol Sulfate 3 ML AMPUL.NEB INHALATION (21:28)
[2021-10-21] VITALS (32 sets, daily range): BP systolic 101–126; BP diastolic 45–65; PULSE 51–74; RESP 18–30; TEMP 36.7–38; O2SAT 86–99
--- NOTE | 2021-10-21 05:13 | PCS.PANDOC ---
PANDEMIC DOCUMENTATION INITIATED: Date: 10/20/21 Time: 1899
[2021-10-21 06:31] LABS: Absolute Lymphocyte Count 0.44 X10^3/uL (0.83-4.51); Absolute Neutrophil Count 7.2 X10^3/uL (2.0-7.7); Basophil# 0.01 X10^3/uL; Basophil% 0.1 % (0-1); Eosinophil# 0.01 X10^3/uL; Eosinophils% 0.1 % (0-5); Hematocrit 38.2 % (40-54); Hemoglobin 12.9 g/dL (13.0-16.5); Lymphocyte # 0.44 X10^3/ul (0.83-4.51); Lymphocyte % 5.3 % (19-41); Mean Corp Hgb Conc 33.8 g/dL (32-36); Mean Corpuscular Hgb 29.7 pg (27.0-32.0); Mean Corpuscular Volume 87.8 fL (80-94); Mean Platelet Vol. 10.2 fl (6.2-12.0); Monocyte# 0.55 X10^3/uL; Monocyte% 6.6 % (0-10); NRBC Flagged by Analyzer 0 % (0-5); Neutrophil % 86.6 % (47-70); POSITIVE DIFFERENTIAL YES; Platelet Count 284 K/mm3 (150-450); RBC Distribution Width CV 11.9 % (11.6-14.6); RBC Distribution Width SD 38.8 fl (35.1-43.9); Red Blood Count 4.35 M/mm3 (4.6-6.2); White Blood Count 8.3 K/mm3 (4.4-11.0)
[2021-10-21 06:45] LABS: Differential Indicated SCAN CRITERIA MET
[2021-10-21 06:55] LABS: Anion Gap 5 (5-15); BUN 24 mg/dL (7-18); BUN/Creat Ratio 31.6 RATIO (10-20); Calcium,Total 7.8 mg/dL (8.5-10.1); Chloride 104 mmol/L (98-107); Creatinine, Serum 0.76 mg/dL (0.70-1.30); EST Glomerular Filtration Rate 110 mL/min (>60); Est Glom Filt Rate - Afr Amer 133 mL/min (>60); Estimated Creatinine Clearance 105.96 ml/min; Glucose 105 mg/dL (74-106); Sodium Level 135 mmol/L (136-145)
--- NOTE | 2021-10-21 08:09 | NURSING ---
notified Lizbet Mayen of concerns with all the phone calls and patient talking on phone which decreases his oxygen status. Lizbet will talk with family and see what she can do.
[2021-10-21] MEDS: Enoxaparin 30 MG/0.3 ML Syringe SC ×2 (10:18→20:45)
[2021-10-21] MEDS: 0.9% Saline Lock 10 ML Syringe IV ×2 (10:18→14:03)
[2021-10-21] MEDS: dexAMETHasone 10 MG/ML Vial 6 MG IV (10:18)
[2021-10-21] MEDS: Acetaminophen 325 MG Tablet 650 MG PO (10:32)
[2021-10-21] MEDS: guaiFENesin 10 ML UDC (200MG/10ML) 20 ML PO (10:32)
--- NOTE | 2021-10-21 11:01 | PN.HOSP_ITS ---
Subjective Subjective Patient seen and examined. Patient was maxed out on Airvo. He is tachypneic and also has a fever of 99.9 Fahrenheit today. He states his breathing is not improving he is coughing quite a lot. He is not cumulative negative balance by 1.3 L. Objective Data Objective Data Vital Signs: Vital Signs Temp Pulse Resp BP Pulse Ox 99.9 F H 74 28 H 126/45 H 93 10/21/21 10:19 10/21/21 10:19 10/21/21 10:19 10/21/21 10:19 10/21/21 10:19 Oxygen Flow Rate (L/min) 59 Oxygen Delivery Method Airvo Weight: 202 lb 6.15 oz Body Mass Index (BMI) 29.0 Intake & Output: Intake and Output for Last 24 Hours 10/19/21 10/20/21 10/21/21 23:59 23:59 23:59 Intake Total 2120 / 2120 Output Total 3375 / 3375 650 / 650 Balance -1255 / -1255 -650 / -650 Medical Nutrition Assessment Dietitian: Malnutrition Criteria Met Start: 10/18/21 11:13 Freq: Status: Active Protocol: Document 10/18/21 11:13 RMA (Rec: 10/18/21 11:13 RMA [id number]) Nutrition Malnutrition Evidence of Malnutrition Exists Yes Malnutrition (severe): Acute Illness/Injury Evidenced By Suboptimal Energy Intake ( Severe),Weight Loss (Severe) Clinical Problem Acute Disease or Injury Related Malnutrition Etiology Severe protein-calorie malnutrition in the context of acute illness related to poor appetite and inadequate oral intake Signs/Symptoms as evidenced by ~2% wt loss x past 1 week and PO meeting less than 50% estimated nutrition needs x past 1 week Status Active Problem Recommendation Dietitian Recommendations/Changes Continue regular diet for now. Will add vanilla ensure compact BID w/ lunch and dinner for tolerance. HgbA1C noted 5.8% slightly elevated---monitor need to restrict carbohydrates as oral intake improves w/ meals. Lab / Micro Data Result Diagrams: 10/21/21 06:00 10/21/21 06:00 Labs: Laboratory Results - last 24 hr 10/21/21 06:00: WBC 8.3, RBC 4.35 L, Hgb 12.9 L, Hct 38.2 L, MCV 87.8, MCH 29.7, MCHC 33.8, RDW Std Deviation 38.8, RDW Coeff of Kayce 11.9, Plt Count 284, MPV 10.2, Immature Gran % (Auto) 1.300 H, Neut % (Auto) 86.6 H, Lymph % (Auto) 5.3 L , [place] % (Auto) 6.6, Eos % (Auto) 0.1, Baso % (Auto) 0.1, Absolute Neuts (auto) 7.2, Absolute Lymphs (auto) 0.44 L, Nucleated RBC % 0 10/21/21 06:00: Sodium 135 L, Potassium 4.0, Chloride 104, Carbon Dioxide 26.0, Anion Gap 5, BUN 24 H, Creatinine 0.76, Estim Creat Clear Calc 105.96, Est GFR (MDRD) Af Amer 133, Est GFR (MDRD) Non-Af 110, BUN/Creatinine Ratio 31.6 H, Glucose 105, Calcium 7.8 L Micro: Microbiology 10/18/21 10:52 Sputum, Expectorated/Coughed Gram Stain - Final 10/18/21 10:52 Sputum, Expectorated/Coughed Respiratory Culture - Preliminary Streptococcus pneumoniae Presumptive C albicans 10/17/21 11:45 Blood Culture (Wb) - Left Hand Blood Culture - Preliminary No growth in 48 hours. 10/17/21 11:15 Blood Culture (Wb) - Left Forearm Blood Culture - Preliminary No growth in 48 hours. 10/17/21 17:24 Urine, Clean Catch Legionella Antigen - Final 10/17/21 17:24 Urine, Clean Catch Streptococcus pneumoniae Antigen (M - Final Physical Exam Const alert and oriented x3 Constitutional Narrative: in moderate resp distress. Exam Limitations: no limitations HEENT head/scalp atraumatic and moist oral mucous membranes Head and Scalp: normocephalic Eyes PERRL, EOMs intact bilaterally and conjunctivae normal Neck no lymphadenopathy Resp Resp Narrative: Diminished breath sounds bibasilar. Few crackles. No wheezes or crackles. tachypneic. On AirVo Cardio regular rate, regular rhythm, S1 normal heart sound, S2 normal heart sound and no murmurs GI normal to inspection, nondistended, normoactive bowel sounds, soft to palpation, non-tender and non-distended Extremity normal to inspection, full ROM and no clubbing, cyanosis or edema Peripheral Pulses: Yes pulses 2+ throughout Skin no rashes or lesions noted Neuro oriented x3, CN's II-XII intact bilaterally and moves all extremities Sensorium / Orientation: awake and alert Psych Mood & Affect: anxious Assessment & Plan Assessment/Plan (1) Acute respiratory failure with hypoxia: (2) Pneumonia due to COVID-19 virus: PLAN: #Acute hypoxic respiratory failure due to covid 19 pneumonia * now maxed out on AirVO. Will transition to BIPAP. * On Decadron 6 mg daily. Remains on AirVo * Patient and family do not want baricitinib or remdesivir. * Titrate oxygen to maintain saturation above 90%. Breathing treatments with bronchodilators. * pulmonology on board. * low threshold for transfer to the ICU and intubation if needed. * sputum culture growing trep pneumoniae and C albicans 2+. Will start IV ceftriaxone * #Nicotine dependence: Counseled to quit. #Transaminitis: Likely due to acute COVID infection. Improving. Will monitor. #Elevated D-dimer: D-dimer was 2.28. CT was negative for PE. Likely due to COVID. On Lovenox DVT prophylaxis: Lovenox 30 mg twice daily CODE STATUS: Full code * Charges/Coding Visit Charges Inpatient E&M: 48222 Subs Hosp L3
[2021-10-21] MEDS: Ipratropium/Albuterol Sulfate 3 ML AMPUL.NEB INHALATION ×3 (11:24→20:19)
[2021-10-21] MEDS: Ceftriaxone 1 GM/50 ML BAG IV (14:03)
[2021-10-22] VITALS (26 sets, daily range): BP systolic 103–115; BP diastolic 51–76; PULSE 52–64; RESP 16–30; TEMP 36–37.1; O2SAT 82–97
[2021-10-22] MEDS: Docusate Sodium 100 MG Capsule PO ×2 (00:05→21:53)
[2021-10-22] MEDS: 0.9% Saline Lock 10 ML Syringe IV ×2 (00:07→08:21)
[2021-10-22 06:15] LABS: Absolute Lymphocyte Count 0.53 X10^3/uL (0.83-4.51); Basophil# 0.02 X10^3/uL; Basophil% 0.2 % (0-1); Eosinophil# 0.01 X10^3/uL; Eosinophils% 0.1 % (0-5); Hematocrit 37.7 % (40-54); Hemoglobin 12.7 g/dL (13.0-16.5); Lymphocyte # 0.53 X10^3/ul (0.83-4.51); Lymphocyte % 5.7 % (19-41); Mean Corp Hgb Conc 33.7 g/dL (32-36); Mean Corpuscular Hgb 29.6 pg (27.0-32.0); Mean Corpuscular Volume 87.9 fL (80-94); Mean Platelet Vol. 10.3 fl (6.2-12.0); Monocyte# 0.55 X10^3/uL; NRBC Flagged by Analyzer 0 % (0-5); Neutrophil # 7.99 X10^3/uL (2.7-7.7); Neutrophil % 86.5 % (47-70); POSITIVE DIFFERENTIAL YES; Platelet Count 327 K/mm3 (150-450); RBC Distribution Width CV 12.2 % (11.6-14.6); RBC Distribution Width SD 38.9 fl (35.1-43.9); Red Blood Count 4.29 M/mm3 (4.6-6.2); White Blood Count 9.2 K/mm3 (4.4-11.0)
[2021-10-22 06:29] LABS: Differential Indicated SCAN CRITERIA MET
[2021-10-22 06:37] LABS: Anion Gap 6 (5-15); BUN 22 mg/dL (7-18); BUN/Creat Ratio 31.9 RATIO (10-20); Calcium,Total 8.6 mg/dL (8.5-10.1); Chloride 103 mmol/L (98-107); Creatinine, Serum 0.69 mg/dL (0.70-1.30); EST Glomerular Filtration Rate 123 mL/min (>60); Est Glom Filt Rate - Afr Amer 149 mL/min (>60); Estimated Creatinine Clearance 116.71 ml/min; Glucose 117 mg/dL (74-106); Potassium 4.2 mmol/L (3.5-5.1); Sodium Level 137 mmol/L (136-145)
[2021-10-22 06:41] LABS: Differential Comment SCANNED
[2021-10-22] MEDS: Ipratropium/Albuterol Sulfate 3 ML AMPUL.NEB INHALATION ×4 (07:46→19:15)
[2021-10-22] MEDS: dexAMETHasone 10 MG/ML Vial 6 MG IV (08:21)
[2021-10-22] MEDS: Enoxaparin 30 MG/0.3 ML Syringe SC ×2 (08:21→21:53)
[2021-10-22] MEDS: Ceftriaxone 1 GM/50 ML BAG IV (09:15)
--- NOTE | 2021-10-22 11:17 | PN.HOSP_ITS ---
Subjective Subjective Patient seen and examined. He still remains on high flow oxygen via air Vo. He feels his shortness of breath has improved a bit. He has no other complaints and review of systems otherwise negative. Objective Data Objective Data Vital Signs: Vital Signs Temp Pulse Resp BP Pulse Ox 98.8 F 60 30 H 110/68 95 10/22/21 08:15 10/22/21 11:05 10/22/21 11:05 10/22/21 08:15 10/22/21 11:05 Oxygen Flow Rate (L/min) 50 Oxygen Delivery Method Airvo Weight: 201 lb 0.985 oz Body Mass Index (BMI) 29.0 Intake & Output: Intake and Output for Last 24 Hours 10/20/21 10/21/21 10/22/21 23:59 23:59 23:59 Intake Total 1268 / 1268 50 / 50 Output Total 650 / 650 1000 / 1000 225 / 225 Balance -650 / -650 268 / 268 -175 / -175 Medical Nutrition Assessment Dietitian: Malnutrition Criteria Met Start: 10/18/21 11:13 Freq: Status: Active Protocol: Document 10/18/21 11:13 RMA (Rec: 10/18/21 11:13 RMA [id number]) Nutrition Malnutrition Evidence of Malnutrition Exists Yes Malnutrition (severe): Acute Illness/Injury Evidenced By Suboptimal Energy Intake ( Severe),Weight Loss (Severe) Clinical Problem Acute Disease or Injury Related Malnutrition Etiology Severe protein-calorie malnutrition in the context of acute illness related to poor appetite and inadequate oral intake Signs/Symptoms as evidenced by ~2% wt loss x past 1 week and PO meeting less than 50% estimated nutrition needs x past 1 week Status Active Problem Recommendation Dietitian Recommendations/Changes Continue regular diet for now. Will add vanilla ensure compact BID w/ lunch and dinner for tolerance. HgbA1C noted 5.8% slightly elevated---monitor need to restrict carbohydrates as oral intake improves w/ meals. Lab / Micro Data Result Diagrams: 10/22/21 05:25 10/22/21 05:25 Labs: Laboratory Results - last 24 hr 10/22/21 05:25: WBC 9.2, RBC 4.29 L, Hgb 12.7 L, Hct 37.7 L, MCV 87.9, MCH 29.6, MCHC 33.7, RDW Std Deviation 38.9, RDW Coeff of Kayce 12.2, Plt Count 327, MPV 10.3, Immature Gran % (Auto) 1.500 H, Neut % (Auto) 86.5 H, Lymph % (Auto) 5.7 L , [place] % (Auto) 6.0, Eos % (Auto) 0.1, Baso % (Auto) 0.2, Absolute Neuts (auto) 8.0 H, Absolute Lymphs (auto) 0.53 L, Nucleated RBC % 0, Differential Comment SCANNED 10/22/21 05:25: Sodium 137, Potassium 4.2, Chloride 103, Carbon Dioxide 28.0, Anion Gap 6, BUN 22 H, Creatinine 0.69 L, Estim Creat Clear Calc 116.71, Est GFR (MDRD) Af Amer 149, Est GFR (MDRD) Non-Af 123, BUN/Creatinine Ratio 31.9 H, Glucose 117 H, Calcium 8.6 Micro: Microbiology 10/18/21 10:52 Sputum, Expectorated/Coughed Gram Stain - Final 10/18/21 10:52 Sputum, Expectorated/Coughed Respiratory Culture - Final Streptococcus pneumoniae Presumptive C albicans 10/17/21 11:45 Blood Culture (Wb) - Left Hand Blood Culture - Preliminary No growth in 48 hours. 10/17/21 11:15 Blood Culture (Wb) - Left Forearm Blood Culture - Preliminary No growth in 48 hours. 10/17/21 17:24 Urine, Clean Catch Legionella Antigen - Final 10/17/21 17:24 Urine, Clean Catch Streptococcus pneumoniae Antigen (M - F inal Physical Exam Const alert and oriented x3 Exam Limitations: no limitations HEENT head/scalp atraumatic and moist oral mucous membranes Head and Scalp: normocephalic Eyes PERRL, EOMs intact bilaterally and conjunctivae normal Neck no lymphadenopathy Resp Resp Narrative: Diminished breath sounds bibasilar. Few crackles. No wheezes or crackles. tachypneic. On AirVo Cardio regular rate, regular rhythm, S1 normal heart sound, S2 normal heart sound and no murmurs GI normal to inspection, nondistended, normoactive bowel sounds, soft to palpation, non-tender and non-distended Extremity normal to inspection, full ROM and no clubbing, cyanosis or edema Peripheral Pulses: Yes pulses 2+ throughout Skin no rashes or lesions noted Neuro oriented x3, CN's II-XII intact bilaterally and moves all extremities Sensorium / Orientation: awake and alert Psych affect normal Mood & Affect: anxious Assessment & Plan Assessment/Plan (1) Acute respiratory failure with hypoxia: (2) Pneumonia due to COVID-19 virus: PLAN: #Acute hypoxic respiratory failure due to covid 19 pneumonia * remains on AirVo. * On Decadron 6 mg daily. To complete a 10 day course. Remains on AirVo * Patient and family do not want baricitinib or remdesivir. * Titrate oxygen to maintain saturation above 90%. Breathing treatments with bronchodilators. * pulmonology on board. * low threshold for transfer to the ICU and intubation if needed. * sputum culture growing tSrep pneumoniae and C albicans 2+. * On IV ceftriaxone. * #Nicotine dependence: Counseled to quit. #Transaminitis: Likely due to acute COVID infection. resolved. Will monitor. #Elevated D-dimer: D-dimer was 2.28. CT was negative for PE. Likely due to COVID. On Lovenox DVT prophylaxis: Lovenox 30 mg twice daily CODE STATUS: Full code * Charges/Coding Visit Charges Inpatient E&M: 23457 Subs Hosp L3
--- NOTE | 2021-10-22 14:20 | CPS ---
Walked pt in his room from the window to the bathroom x 2 on 14lpm, SpO2 stayed in low 90's. Decreased O2 to 12lpm after pt recovered.
[2021-10-23] VITALS (21 sets, daily range): BP systolic 113–121; BP diastolic 61–68; PULSE 47–63; RESP 18–28; TEMP 36.2–37.1; O2SAT 92–97
[2021-10-23 07:36] LABS: Absolute Lymphocyte Count 0.62 X10^3/uL (0.83-4.51); Absolute Neutrophil Count 8.4 X10^3/uL (2.0-7.7); Basophil# 0.02 X10^3/uL; Basophil% 0.2 % (0-1); Eosinophil# 0.08 X10^3/uL; Eosinophils% 0.8 % (0-5); Hematocrit 39.8 % (40-54); Hemoglobin 13.5 g/dL (13.0-16.5); Lymphocyte # 0.62 X10^3/ul (0.83-4.51); Lymphocyte % 6.2 % (19-41); Mean Corp Hgb Conc 33.9 g/dL (32-36); Mean Corpuscular Hgb 30.1 pg (27.0-32.0); Mean Corpuscular Volume 88.6 fL (80-94); Monocyte# 0.57 X10^3/uL; Monocyte% 5.7 % (0-10); NRBC Flagged by Analyzer 0 % (0-5); Neutrophil # 8.38 X10^3/uL (2.7-7.7); Neutrophil % 84.1 % (47-70); Platelet Count 401 K/mm3 (150-450); RBC Distribution Width CV 12.3 % (11.6-14.6); RBC Distribution Width SD 40.3 fl (35.1-43.9); Red Blood Count 4.49 M/mm3 (4.6-6.2)
[2021-10-23] MEDS: Ipratropium/Albuterol Sulfate 3 ML AMPUL.NEB INHALATION ×4 (07:48→19:04)
[2021-10-23 07:57] LABS: Anion Gap 7 (5-15); BUN 23 mg/dL (7-18); Calcium,Total 8.7 mg/dL (8.5-10.1); Chloride 104 mmol/L (98-107); Creatinine, Serum 0.68 mg/dL (0.70-1.30); EST Glomerular Filtration Rate 126 mL/min (>60); Est Glom Filt Rate - Afr Amer 152 mL/min (>60); Estimated Creatinine Clearance 118.43 ml/min; Glucose 111 mg/dL (74-106); Potassium 4.5 mmol/L (3.5-5.1); Sodium Level 139 mmol/L (136-145)
--- NOTE | 2021-10-23 08:00 | CPS ---
Walked pt on 14lpm x 3 from chair to bathroom, pt is steady. Pt sat in the chair after walk. R.T. decreased HFNC to 9lpm after pt recovered from his walk.
[2021-10-23] MEDS: dexAMETHasone 10 MG/ML Vial 6 MG IV (09:23)
[2021-10-23] MEDS: Enoxaparin 30 MG/0.3 ML Syringe SC ×2 (09:23→20:42)
[2021-10-23] MEDS: 0.9% Saline Lock 10 ML Syringe IV (09:24)
[2021-10-23] MEDS: Ceftriaxone 1 GM/50 ML BAG IV (09:24)
--- NOTE | 2021-10-23 10:49 | PN.HOSP_ITS ---
Subjective Subjective Patient seen and examined. He remains on oxygen. He is on 9L of oxygn today, and has been weand off AirVo. He is feeling much better, and review of systems is otherwise negative. Objective Data Objective Data Vital Signs: Vital Signs Temp Pulse Resp BP Pulse Ox 97.2 F L 63 26 H 113/66 94 10/23/21 07:36 10/23/21 09:06 10/23/21 07:48 10/23/21 07:36 10/23/21 09:45 Oxygen Flow Rate (L/min) 9 Oxygen Delivery Method High Flow Weight: 203 lb 4.259 oz Body Mass Index (BMI) 29.0 Intake & Output: Intake and Output for Last 24 Hours 10/21/21 10/22/21 10/23/21 23:59 23:59 23:59 Intake Total 1268 / 1268 944.5 / 944.5 50 / 50 Output Total 1000 / 1000 525 / 525 2650 / 2650 Balance 268 / 268 419.5 / 419.5 -2600 / -2600 Medical Nutrition Assessment Dietitian: Malnutrition Criteria Met Start: 10/18/21 11:13 Freq: Status: Active Protocol: Document 10/18/21 11:13 RMA (Rec: 10/18/21 11:13 RMA [id number]) Nutrition Malnutrition Evidence of Malnutrition Exists Yes Malnutrition (severe): Acute Illness/Injury Evidenced By Suboptimal Energy Intake ( Severe),Weight Loss (Severe) Clinical Problem Acute Disease or Injury Related Malnutrition Etiology Severe protein-calorie malnutrition in the context of acute illness related to poor appetite and inadequate oral intake Signs/Symptoms as evidenced by ~2% wt loss x past 1 week and PO meeting less than 50% estimated nutrition needs x past 1 week Status Active Problem Recommendation Dietitian Recommendations/Changes Continue regular diet for now. Will add vanilla ensure compact BID w/ lunch and dinner for tolerance. HgbA1C noted 5.8% slightly elevated---monitor need to restrict carbohydrates as oral intake improves w/ meals. Lab / Micro Data Result Diagrams: 10/23/21 06:30 10/23/21 06:30 Labs: Laboratory Results - last 24 hr 10/23/21 06:30: WBC 10.0, RBC 4.49 L, Hgb 13.5, Hct 39.8 L, MCV 88.6, MCH 30.1, MCHC 33.9, RDW Std Deviation 40.3, RDW Coeff of Kayce 12.3, Plt Count 401, MPV 10.0, Immature Gran % (Auto) 3.000 H, Neut % (Auto) 84.1 H, Lymph % (Auto) 6.2 L , [place] % (Auto) 5.7, Eos % (Auto) 0.8, Baso % (Auto) 0.2, Absolute Neuts (auto) 8.4 H, Absolute Lymphs (auto) 0.62 L, Nucleated RBC % 0 10/23/21 06:30: Sodium 139, Potassium 4.5, Chloride 104, Carbon Dioxide 28.0, Anion Gap 7, BUN 23 H, Creatinine 0.68 L, Estim Creat Clear Calc 118.43, Est GFR (MDRD) Af Amer 152, Est GFR (MDRD) Non-Af 126, BUN/Creatinine Ratio 34.0 H, Glucose 111 H, Calcium 8.7 Micro: Microbiology 10/17/21 11:45 Blood Culture (Wb) - Left Hand Blood Culture - Final No growth in 5 days. 10/17/21 11:15 Blood Culture (Wb) - Left Forearm Blood Culture - Final No growth in 5 days. 10/18/21 10:52 Sputum, Expectorated/Coughed Gram Stain - Final 10/18/21 10:52 Sputum, Expectorated/Coughed Respiratory Culture - Final Streptococcus pneumoniae Presumptive C albicans 10/17/21 17:24 Urine, Clean Catch Legionella Antigen - Final 10/17/21 17:24 Urine, Clean Catch Streptococcus pneumoniae Antigen (M - Final Physical Exam Const alert, oriented x3 and no apparent distress Exam Limitations: no limitations HEENT head/scalp atraumatic and moist oral mucous membranes Head and Scalp: normocephalic Eyes PERRL, EOMs intact bilaterally and conjunctivae normal Neck no lymphadenopathy Resp Resp Narrative: Diminished breath sounds bibasilar. Few crackles. No wheezes or crackles. tachypneic. Now on 9L of oxygen by nasal canula Cardio regular rate, regular rhythm, S1 normal heart sound, S2 normal heart sound and no murmurs GI normal to inspection, nondistended, normoactive bowel sounds, soft to palpation, non-tender and non-distended Extremity normal to inspection, full ROM and no clubbing, cyanosis or edema Peripheral Pulses: Yes pulses 2+ throughout Skin no rashes or lesions noted Neuro oriented x3, CN's II-XII intact bilaterally and moves all extremities Sensorium / Orientation: awake and alert Psych affect normal Assessment & Plan Assessment/Plan (1) Acute respiratory failure with hypoxia: (2) Pneumonia due to COVID-19 virus: PLAN: #Acute hypoxic respiratory failure due to covid 19 pneumonia * weaned off AirVo and now on oxygen 9L by nasal canula * On Decadron 6 mg daily. To complete a 10 day course. Remains on AirVo * Patient and family do not want baricitinib or remdesivir. * Titrate oxygen to maintain saturation above 90%. Breathing treatments with bronchodilators. * pulmonology on board. * sputum culture growing tSrep pneumoniae and C albicans 2+. * On IV ceftriaxone. * #Nicotine dependence: Counseled to quit. #Transaminitis: Likely due to acute COVID infection. resolved. #Elevated D-dimer: D-dimer was 2.28. CT was negative for PE. Likely due to COVID. On Lovenox DVT prophylaxis: Lovenox 30 mg twice daily CODE STATUS: Full code * Charges/Coding Visit Charges Inpatient E&M: 30080 Subs Hosp L2
[2021-10-23] MEDS: Docusate Sodium 100 MG Capsule PO (14:22)
[2021-10-24] VITALS (12 sets, daily range): BP systolic 107–119; BP diastolic 66–69; PULSE 54–66; RESP 18–20; TEMP 36.2–36.8; O2SAT 79–95
[2021-10-24 06:35] LABS: Absolute Lymphocyte Count 0.79 X10^3/uL (0.83-4.51); Absolute Neutrophil Count 8.3 X10^3/uL (2.0-7.7); Basophil# 0.02 X10^3/uL; Basophil% 0.2 % (0-1); Eosinophils% 1.9 % (0-5); Hematocrit 39.4 % (40-54); Hemoglobin 13.3 g/dL (13.0-16.5); Lymphocyte # 0.79 X10^3/ul (0.83-4.51); Lymphocyte % 7.6 % (19-41); Mean Corp Hgb Conc 33.8 g/dL (32-36); Mean Corpuscular Volume 88.9 fL (80-94); Mean Platelet Vol. 9.7 fl (6.2-12.0); Monocyte# 0.54 X10^3/uL; Monocyte% 5.2 % (0-10); NRBC Flagged by Analyzer 0 % (0-5); Neutrophil # 8.32 X10^3/uL (2.7-7.7); Neutrophil % 80.5 % (47-70); Platelet Count 436 K/mm3 (150-450); RBC Distribution Width CV 12.4 % (11.6-14.6); RBC Distribution Width SD 40.6 fl (35.1-43.9); Red Blood Count 4.43 M/mm3 (4.6-6.2); White Blood Count 10.4 K/mm3 (4.4-11.0)
[2021-10-24 07:01] LABS: Anion Gap 7 (5-15); BUN 24 mg/dL (7-18); BUN/Creat Ratio 33.7 RATIO (10-20); Calcium,Total 8.7 mg/dL (8.5-10.1); Chloride 105 mmol/L (98-107); Creatinine, Serum 0.71 mg/dL (0.70-1.30); EST Glomerular Filtration Rate 118 mL/min (>60); Est Glom Filt Rate - Afr Amer 143 mL/min (>60); Estimated Creatinine Clearance 113.42 ml/min; Glucose 135 mg/dL (74-106); Sodium Level 136 mmol/L (136-145)
--- NOTE | 2021-10-24 08:15 | PN.HOSP_ITS ---
Subjective Subjective Follow-up on acute hypoxic respiratory failure/acute COVID-19 pneumonia: Patient was seen and examined. He is on 6 L of oxygen. Denied any new complaint. No fevers or chills. No acute events overnight. Objective Data Objective Data Vital Signs: Vital Signs Temp Pulse Resp BP Pulse Ox 97.2 F L 54 L 18 111/69 93 10/24/21 02:57 10/24/21 03:00 10/24/21 02:57 10/24/21 02:57 10/24/21 07:38 Oxygen Flow Rate (L/min) 6 Oxygen Delivery Method Nasal Cannula Weight: 92.125 kg Body Mass Index (BMI) 29.0 Intake & Output: Intake and Output for Last 24 Hours 10/22/21 10/23/21 10/24/21 23:59 23:59 23:59 Intake Total 944.5 / 944.5 950 / 950 Output Total 525 / 525 3050 / 3050 300 / 300 Balance 419.5 / 419.5 -2100 / -2100 -300 / -300 Medical Nutrition Assessment Dietitian: Malnutrition Criteria Met Start: 10/18/21 11:13 Freq: Status: Active Protocol: Document 10/18/21 11:13 RMA (Rec: 10/18/21 11:13 RMA [id number]) Nutrition Malnutrition Evidence of Malnutrition Exists Yes Malnutrition (severe): Acute Illness/Injury Evidenced By Suboptimal Energy Intake ( Severe),Weight Loss (Severe) Clinical Problem Acute Disease or Injury Related Malnutrition Etiology Severe protein-calorie malnutrition in the context of acute illness related to poor appetite and inadequate oral intake Signs/Symptoms as evidenced by ~2% wt loss x past 1 week and PO meeting less than 50% estimated nutrition needs x past 1 week Status Active Problem Recommendation Dietitian Recommendations/Changes Continue regular diet for now. Will add vanilla ensure compact BID w/ lunch and dinner for tolerance. HgbA1C noted 5.8% slightly elevated---monitor need to restrict carbohydrates as oral intake improves w/ meals. Lab / Micro Data Result Diagrams: 10/24/21 06:12 10/24/21 06:12 Labs: Laboratory Results - last 24 hr 10/24/21 06:12: WBC 10.4, RBC 4.43 L, Hgb 13.3, Hct 39.4 L, MCV 88.9, MCH 30.0, MCHC 33.8, RDW Std Deviation 40.6, RDW Coeff of Kayce 12.4, Plt Count 436, MPV 9.7, Immature Gran % (Auto) 4.600 H, Neut % (Auto) 80.5 H, Lymph % (Auto) 7.6 L, [place] % (Auto) 5.2, Eos % (Auto) 1.9, Baso % (Auto) 0.2, Absolute Neuts (auto) 8.3 H, Absolute Lymphs (auto) 0.79 L, Nucleated RBC % 0 10/24/21 06:12: Sodium 136, Potassium 4.0, Chloride 105, Carbon Dioxide 24.0, Anion Gap 7, BUN 24 H, Creatinine 0.71, Estim Creat Clear Calc 113.42, Est GFR (MDRD) Af Amer 143, Est GFR (MDRD) Non-Af 118, BUN/Creatinine Ratio 33.7 H, Glucose 135 H, Calcium 8.7 Micro: Microbiology 10/17/21 11:45 Blood Culture (Wb) - Left Hand Blood Culture - Final No growth in 5 days. 10/17/21 11:15 Blood Culture (Wb) - Left Forearm Blood Culture - Final No growth in 5 days. 10/18/21 10:52 Sputum, Expectorated/Coughed Gram Stain - Final 10/18/21 10:52 Sputum, Expectorated/Coughed Respiratory Culture - Final Streptococcus pneumoniae Presumptive C albicans 10/17/21 17:24 Urine, Clean Catch Legionella Antigen - Final 10/17/21 17:24 Urine, Clean Catch Streptococcus pneumoniae Antigen (M - Final Physical Exam Narrative Physical exam: General: Alert, Oriented x3, Cooperative, No apparent distress, Well developed, on 6 L of oxygen HEENT: Atraumatic Oral: Moist Mucosa Neck: Supple Lungs: Diminished to auscultation Cardiovascular: HS I+II, regular, no murmurs Abdomen: Bowel Sounds Present, Soft, Non Tender Extremities: No edema Assessment & Plan Assessment/Plan (1) Acute respiratory failure with hypoxia: (2) Pneumonia due to COVID-19 virus: PLAN: 1. Acute hypoxic respiratory failure secondary to acute COVID-19 pneumonia/strep pneumoniae pneumonia, slowly improving Patient is currently on 6 L of oxygen Patient did not want any baricitinib or remdesivir Sputum cultures growing strep pneumoniae and C albicans Continue on Decadron to complete 10 days Continue on IV ceftriaxone; aiming for total of 7days antibiotics 2. Nicotine dependence, advised to quit 3. Acute transaminitis secondary to acute COVID infection, resolved 4. Elevated D-dimer, D-dimer 2.28 Acute PE ruled out from negative CTA of the chest 5. DVT PPx- Lovenox SC Charges/Coding Visit Charges Inpatient E&M: 73895 Subs Hosp L2
[2021-10-24] MEDS: Enoxaparin 30 MG/0.3 ML Syringe SC ×2 (09:45→21:20)
[2021-10-24] MEDS: Ceftriaxone 1 GM/50 ML BAG IV (09:45)
[2021-10-24] MEDS: 0.9% Saline Lock 10 ML Syringe IV (09:46)
[2021-10-24] MEDS: dexAMETHasone 10 MG/ML Vial 6 MG IV (09:46)
--- NOTE | 2021-10-24 11:17 | NURSING ---
oxygen up to 15L for activity/recovery and within less than 5 minutes back to baseline.
[2021-10-24] MEDS: Ipratropium/Albuterol Sulfate 3 ML AMPUL.NEB INHALATION ×3 (11:22→20:27)
[2021-10-24] MEDS: Docusate Sodium 100 MG Capsule PO (21:20)
[2021-10-25] VITALS (8 sets, daily range): BP systolic 109–124; BP diastolic 67–72; PULSE 52–64; RESP 18–20; TEMP 35.7–36.6; O2SAT 88–97
[2021-10-25 06:28] LABS: Absolute Lymphocyte Count 0.77 X10^3/uL (0.83-4.51); Absolute Neutrophil Count 7.1 X10^3/uL (2.0-7.7); Basophil# 0.04 X10^3/uL; Basophil% 0.4 % (0-1); Eosinophil# 0.17 X10^3/uL; Eosinophils% 1.9 % (0-5); Hematocrit 41.9 % (40-54); Hemoglobin 13.8 g/dL (13.0-16.5); Lymphocyte # 0.77 X10^3/ul (0.83-4.51); Lymphocyte % 8.5 % (19-41); Mean Corp Hgb Conc 32.9 g/dL (32-36); Mean Corpuscular Hgb 29.7 pg (27.0-32.0); Mean Corpuscular Volume 90.1 fL (80-94); Mean Platelet Vol. 10.1 fl (6.2-12.0); Monocyte# 0.56 X10^3/uL; Monocyte% 6.2 % (0-10); NRBC Flagged by Analyzer 0 % (0-5); Neutrophil # 7.05 X10^3/uL (2.7-7.7); Neutrophil % 78.1 % (47-70); Platelet Count 483 K/mm3 (150-450); RBC Distribution Width CV 12.3 % (11.6-14.6); RBC Distribution Width SD 41.1 fl (35.1-43.9); Red Blood Count 4.65 M/mm3 (4.6-6.2)
[2021-10-25 06:39] LABS: Anion Gap 5 (5-15); BUN 24 mg/dL (7-18); Calcium,Total 8.9 mg/dL (8.5-10.1); Chloride 105 mmol/L (98-107); Creatinine, Serum 0.69 mg/dL (0.70-1.30); EST Glomerular Filtration Rate 124 mL/min (>60); Est Glom Filt Rate - Afr Amer 150 mL/min (>60); Estimated Creatinine Clearance 116.71 ml/min; Glucose 98 mg/dL (74-106); Potassium 4.1 mmol/L (3.5-5.1); Sodium Level 138 mmol/L (136-145)
[2021-10-25] MEDS: Ipratropium/Albuterol Sulfate 3 ML AMPUL.NEB INHALATION ×2 (07:11→10:03)
[2021-10-25] MEDS: Docusate Sodium 100 MG Capsule PO (09:45)
[2021-10-25] MEDS: Ceftriaxone 1 GM/50 ML BAG IV (09:45)
[2021-10-25] MEDS: dexAMETHasone 10 MG/ML Vial 6 MG IV (09:46)
[2021-10-25] MEDS: Enoxaparin 30 MG/0.3 ML Syringe SC (09:46)
--- NOTE | 2021-10-25 12:01 | NURSING ---
attempted to complete walking p.o. intervention, but pt was on phone and didn't want to get off of it.
--- NOTE | 2021-10-25 12:58 | PCM.DC.SUM ---
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4 - Pneumonia due to other streptococci (4) Severe protein-calorie malnutrition: Status: Acute Code(s): E43 - Unspecified severe protein-calorie malnutrition Medications at Discharge Home Medications albuterol sulfate [Ventolin HFA] 4 - 8 puff INHALATION Q4H PRN PRN 14 Days #1 g 10/25/21 cefdinir 300 mg PO BID 2 Days #4 cap 10/25/21 dexamethasone 6 mg PO DAILY 2 Days #2 tab 10/25/21 Hospital Course Operations None Procedures None Summary of Care Provided Minutes Spent on Discharge: 40 Hospital Course: 61-year-old male with past medical history of nicotine dependence who comes in with COVID-19 symptoms that started 10 days prior. Patient is unvaccinated and had a worsening shortness of breath. He was tested positive for COVID-19 a couple of days prior to admission. On evaluation in the ED, he was saturating 85% on room air and improved to 92% on 2 L of oxygen. CTA of the chest was negative for acute PE. Patient was started on dexamethasone and admitted. His oxygen requirements worsened to high flow oxygen. Patient refused any paroxetine in it. Further work-up during this hospital stay especially when he was decompensated and requiring high flow oxygen and was suggestive of strep pneumo pneumonia. His sputum cultures showed Streptococcus pneumonia. Patient received IV ceftriaxone. He was discharged on oral cefdinir for 2 more days to make a total of 7 days of antibiotics. Patient was evaluated for home oxygen and qualified. He was discharged on 2 L of oxygen. He was also discharged on 2 more days of dexamethasone to make a total of 10 days. He will follow-up with his primary care doctor within 1 to 2 weeks. Physical Exam Narrative Physical exam: General: Alert, Oriented x3, Cooperative, No apparent distress, Well developed, on 2 L of oxygen HEENT: Atraumatic Oral: Moist Mucosa Neck: Supple Lungs: Diminished to auscultation Cardiovascular: HS I+II, regular, no murmurs Abdomen: Bowel Sounds Present, Soft, Non Tender Extremities: No edema Medical Records Data Medical Nutrition Assessment Dietitian: Malnutrition Criteria Met Start: 10/18/21 11:13 Freq: Status: Active Protocol: Document 10/25/21 11:30 RMA (Rec: 10/25/21 11:30 RMA [id number]) Nutrition Malnutrition Evidence of Malnutrition Exists Yes Malnutrition (severe): Acute Illness/Injury Evidenced By Suboptimal Energy Intake ( Severe),Weight Loss (Severe) Clinical Problem Acute Disease or Injury Related Malnutrition Etiology Severe protein-calorie malnutrition in the context of acute illness related to poor appetite and inadequate oral/ energy intake Signs/Symptoms as evidenced by ~5.7% wt loss x past 1 week, taking less than 50% of meals and PO meeting less than 50% estimated nutrition needs x past 1 week Status Active Problem Recommendation Dietitian Recommendations/Changes Continue liberalized regular diet. Will add vanilla ensure compact TID w/ meals. HgbA1C noted 5.8% slightly elevated---monitor need to restrict carbohydrates as oral intake improves w/ meals. Weight / BMI Weight Weight: 89.1 kg Body Mass Index (BMI) 29.0 ABG / Lab / Microbiology Data Result Diagrams: 10/25/21 04:33 10/25/21 04:33 Laboratory: Laboratory Results - last 24 hr 10/25/21 04:33: WBC 9.0, RBC 4.65, Hgb 13.8, Hct 41.9, MCV 90.1, MCH 29.7, MCHC 32.9, RDW Std Deviation 41.1, RDW Coeff of Kayce 12.3, Plt Count 483 H, MPV 10.1, Immature Gran % (Auto) 4.900 H, Neut % (Auto) 78.1 H, Lymph % (Auto) 8.5 L, [place] % (Auto) 6.2, Eos % (Auto) 1.9, Baso % (Auto) 0.4, Absolute Neuts (auto) 7.1, Absolute Lymphs (auto) 0.77 L, Nucleated RBC % 0 10/25/21 04:33: Sodium 138, Potassium 4.1, Chloride 105, Carbon Dioxide 28.0, Anion Gap 5, BUN 24 H, Creatinine 0.69 L, Estim Creat Clear Calc 116.71, Est GFR (MDRD) Af Amer 150, Est GFR (MDRD) Non-Af 124, BUN/Creatinine Ratio 35.0 H, Glucose 98, Calcium 8.9 Microbiology: Microbiology 10/17/21 11:45 Blood Culture (Wb) - Left Hand Blood Culture - Final No growth in 5 days. 10/17/21 11:15 Blood Culture (Wb) - Left Forearm Blood Culture - Final No growth in 5 days. 10/18/21 10:52 Sputum, Expectorated/Coughed Gram Stain - Final 10/18/21 10:52 Sputum, Expectorated/Coughed Respiratory Culture - Final Streptococcus pneumoniae Presumptive C albicans 10/17/21 17:24 Urine, Clean Catch Legionella Antigen - Final 10/17/21 17:24 Urine, Clean Catch Streptococcus pneumoniae Antigen (M - Final D/C Instructions Discharge Diet: No restrictions Meaningful Use Info Meaningful Use Diagnoses (Choose all that apply): None applicable Discharge Plan Admission Admit Date/Time: 10/17/21 14:40 Primary Reason for Your Visit: Acute respiratory failure secondary to acute COVID-19 pneumonia Attending Provider: Kristine Mendoza Primary Care Provider: Care Physician,No Primary Consulting Providers: Venkat Sen ; Jose Prater ; Kelin Louise DIRT BIKE RACER Instructions Additional Instructions / Restrictions: Continue to take all your medications as prescribed. YYou are being discharged with oxygen. Continue to use your oxygen all the time. Continue to use your incentive spirometer. Continue to remain active and eat healthy. Let your doctor know if you develop fever >101.3F or have progressive worsening shortness of breath. Follow-up with your primary care doctor to have your continued oxygen use reevaluated. Be careful of going near open flames whilst on oxygen. Complete your Decadron as prescribed. Continue to use your inhaler as needed for shortness of breath. Continue to quarantine for 20 days total from the start of your symptoms. Discharge Orders/Prescriptions Prescriptions: New albuterol sulfate [Ventolin HFA] 90 mcg/actuation Hfa Aerosol Inhaler 4 - 8 puff inhalation Q4H PRN PRN (Reason: Dyspnea, wheezing) 14 Days Qty: 1 RF: 0 cefdinir 300 mg capsule 300 mg PO BID 2 Days Qty: 4 RF: 0 dexamethasone 6 mg tablet 6 mg PO DAILY 2 Days Qty: 2 RF: 0 Referrals / Follow Up: Care Physician,No Primary [Primary Care Provider] - Within 2 Weeks Disposition Disposition (needs filled in before D/C Order can be placed): Home, Self Care Charges/Coding Visit Charges Inpatient E&M: 94716 Disch Hosp
== END 2021-10-25 17:40 | disposition home or self-care (01) | DRG 177 ==
LOC: ED 14:32 → MS3 14:52
PROVIDERS: Student in an Organized Health Care Education/Training Program; Admitting Provider Family Medicine; Emergency Provider Emergency Medicine; Visit Provider Internal Medicine
DX: U07.1 COVID-19 (principal); J96.01 Acute respiratory failure with hypoxia; J12.82 Pneumonia due to coronavirus disease 2019; E43 Unspecified severe protein-calorie malnutrition; J13 Pneumonia due to Streptococcus pneumoniae; F17.210 Nicotine dependence, cigarettes, uncomplicated; R73.9 Hyperglycemia, unspecified; Z68.29 Body mass index [BMI] 29.0-29.9, adult
CPT/HCPCS: 36415; 71275; 80048; 80053; 82728; 83036; 83605; 83615; 83880; 84145; 85025; 85379; 86140; 87040; 87070; 87077; 87186; 87205; 87449; 93005; 94640; 94660; 94667; 94668; 94762; 99251; 99285; 99406; J7030; J7050; Q9967; A4216; G0463